=== PATIENT | female | born 1990 | race Caucasian/White ===

== ENCOUNTER 2016-03-10 13:20 | Inpatient (IN) | payer OTHER ==
[~2016-03-10] VITALS: Ht 152.4 cm; Wt 69.0 kg
[~2016-03-10 13:20] MED LIST: ALBU8.5H3 INH; AZIT250T94 PO; CALC500T12 PO; HYDR-3498 PO; IBUP-1542 PO; IBUP400T22 PO; IRON1TAB77 PO; PRENAT PO
[2016-03-10 13:24] VITALS: Ht 152.4 cm; Wt 69.0 kg
[2016-03-10 13:27] VITALS: BP 99/57; PULSE 77; RESP 19
[2016-03-10] MEDS ORDERED: LACTATED RINGER'S 250 ML IV ONE (14:00)
[2016-03-10 14:22] LABS: ADD UMIC NO; URINE BILIRUBIN (Dip) NEGATIVE (NEGATIVE); URINE BLOOD (Dip) NEGATIVE (NEGATIVE); URINE COLOR YELLOW (YELLOW); URINE GLUCOSE (Dip) NEGATIVE (NEGATIVE); URINE KETONES (Dip) NEGATIVE (NEGATIVE); URINE LEUKOCYTE ESTERASE (Dip) NEGATIVE (NEGATIVE); URINE NITRITE (Dip) NEGATIVE (NEGATIVE); URINE TOTAL PROTEIN (Dip) NEGATIVE (NEGATIVE); URINE UROBILINOGEN (Dip) 0.2 E.U./dL (0.1-1.0)
--- NOTE | 2016-03-10 14:28 | RADRPT ---
PROCEDURE: OB ultrasound CLINICAL INDICATION: . OB ultrasound with fluid volume assessment. TECHNIQUE: Mcmahon scale, color Doppler, and M-mode sonographic imaging of the gravid uterus with quintana sabdominal and transvaginal imaging. COMPARISON: OB ultrasound 02/04/2014 FINDINGS: The amniotic fluid index equals approximately 12.3 cm. heart rate: 156 Beats per minute. Presentation: Breech Placenta posterior, no evidence of previa or abruption. Cervix is closed measuring 3.5 cm. IMPRESSION: Amniotic fluid index equals 12.3 cm. Breech presentation RPTAT: AADD .Franky Bills MD, MD Date Time Electronically viewed and signed by .Franky Bills MD, on 03/10/2016 14:28 .B/
--- NOTE | 2016-03-10 16:05 | TRIAGE ---
OB Triage Datetime Report Generated by CPN: 03/10/2016 16:04 Datetime: 03/10/2016 15:30 Stage of : OB Triage Labor Evaluation Frequency: Q 2-3 Monitor Mode: External Duration (sec)2399: 60 Quality: Mild Pattern: Normal: <= 5 Contractions in 10 Minutes Resting Tone [place]: Relaxed Heart Rate FHR Baseline Rate: 145 Monitor Mode: External US FHR Baseline Changes: No Baseline Change Variability: Moderate 6-25 bpm Accelerations: 15X15 Decelerations: None Category: Category I Pain Assessment Pain Scale: 3 Pain Presence: Intermittent Pain Type: Cramping; Contraction Pain Location: Back Pain Goal: 3 Vaginal Exam Membrane Status: Intact Datetime: 03/10/2016 14:47 Labor Evaluation Frequency: Q 2-3 Monitor Mode: External Duration (sec)2399: 60 Quality: Mild Pattern: Normal: <= 5 Contractions in 10 Minutes Resting Tone [place]: Relaxed Heart Rate FHR Baseline Rate: 145 Monitor Mode: External US FHR Baseline Changes: No Baseline Change Variability: Moderate 6-25 bpm Accelerations: 15X15 Decelerations: None Category: Category I Comments: APPROPOR GEST AGE Vaginal Exam Membrane Status: Intact Datetime: 03/10/2016 14:31 Heart Rate FHR Baseline Rate: 140 FHR Baseline Changes: No Baseline Change Variability: Minimal - Undetectable to <=5 bpm Decelerations: None Category: Category I Comments: APPROPRIATE FOR GEST AGE Vaginal Exam Membrane Status: Intact Datetime: 03/10/2016 13:40 Maternal Assessment Level of Consciousness: Fully Conscious DTR's/Clonus: DTRs 1+ Headache: Denies Blurred Vision: No Nausea/Vomiting: Denies RUQ Epigastric Pain: Denies Facial Edema: None Labor Evaluation Frequency: 1-2 Monitor Mode: External Duration (sec)2399: 40-80 Quality: Mild Pattern: Normal: <= 5 Contractions in 10 Minutes Resting Tone [place]: Relaxed Heart Rate FHR Baseline Rate: 140 Monitor Mode: External US Variability: Moderate 6-25 bpm Accelerations: 10X10 Decelerations: None Category: Category I Pain Assessment Pain Scale: 6 Pain Presence: Intermittent Pain Type: Contraction Pain Location: Back Pain Goal: 3 Pain Relief Measures: Pain Medication Given Vaginal Exam Membrane Status: Intact Datetime: 03/10/2016 13:24 Assessment Type: Triage Maternal Assessment Level of Consciousness: Fully Conscious DTR's/Clonus: DTRs 2+; No Clonus Headache: Denies Blurred Vision: No Respiratory Effort: Unlabored; Regular Rhythm; Equal Expansion Breath Sounds, Left: Clear and Equal Breath Sounds, Right: Clear and Equal Nausea/Vomiting: Denies RUQ Epigastric Pain: Denies Lower Extremities Edema: None Degree: None Upper Extremities Edema: None Degree: None Facial Edema: None Fall Risk Assessment History of Falling: (0) No Secondary Diagnosis: (0) No Ambulatory Aid: (0) Bedrest/Nurse Assist IV Therapy: (0) No Gait: (0) Normal/Bedrest/Immobile Mental Status: (0) Oriented to Own Ability Fall Score: 0 Fall Risk Score Definition: No Risk: No action required Datetime: 03/10/2016 13:22 EGA: 24.1 Datetime: 03/10/2016 13:15 Time of Arrival: 03/10/2016 13:15 Arrived By: Wheelchair Arrived From: Home Chief Complaint: PT CAME IN FROM WORK C/O UC'S Q 5-10MIN SINCE 1200PM Movement: Present Contractions: Regular Time Contractions Began: 03/10/2016 12:00 Contractions: 5-10 Rupture of Membranes: Denies Vaginal Discharge: Denies Recent Sexual Intercouse: Denies Abdominal Trauma: Not Applicable Additional Patient Complaints: NONE Time Provider Notified: 03/10/2016 13:40 Provider Notified: TYLOR Initial Plan: MONITOR, IV HYDRATION, CERVICAL LENGHT
[2016-03-10] MEDS ORDERED: AMPICILLIN 2 GM/NS (PMX) 100 ML IV ONE (16:30)
[2016-03-10] MEDS ORDERED: MAGNESIUM SULFATE 4 GM/100 ML 100 ML IV ONE (16:30)
[2016-03-10 16:36] LABS: BASOPHILS % 0.3 % (0.0-2.0); EOSINOPHILS # 0.1 10^3/ul (0.0-0.5); EOSINOPHILS % 1.2 % (0.0-7.0); HEMOGLOBIN 10.8 g/dl (12.0-16.0); LYMPHOCYTES # 1.4 10^3/ul (0.8-2.9); LYMPHOCYTES % 16.4 % (15.0-51.0); MEAN CORPUSCULAR HEMOGLOBIN 32.5 pg (29.0-33.0); MEAN CORPUSCULAR HGB CONC 34.9 g/dl (32.0-37.0); MEAN CORPUSCULAR VOLUME 93.2 fl (82.0-101.0); MEAN PLATELET VOLUME 9.2 fl (7.4-10.4); MONOCYTE # 0.5 10^3/ul (0.3-0.9); MONOCYTES % 6.5 % (0.0-11.0); NEUTROPHIL # 6.4 10^3/ul (1.6-7.5); NEUTROPHILS % 75.6 % (39.0-77.0); PLATELET COUNT 264 10^3/UL (140-440); RED BLOOD COUNT 3.33 10^6/ul (4.20-5.40); RED CELL DISTRIBUTION WIDTH 12.2 % (11.5-14.5); UNCORRECTED WBC 8.4 10^3/ul (4.8-10.8); WHITE BLOOD COUNT 8.4 10^3/ul (4.8-10.8)
[2016-03-10 16:37] LABS: CONDITION 1
[2016-03-10] MEDS: LACTATED RINGER'S 1,000 ML IV SCH (16:46)
[2016-03-10] MEDS: BETAMET NA PHOS/AC(6 MG/ML) 5ML INJ IM SCH (16:46)
[2016-03-10] MEDS: MAGNESIUM SULFATE 20 GM/500 ML 500 ML IV SCH (17:25)
[2016-03-11] MEDS: LACTATED RINGER'S 1,000 ML IV SCH ×4 (00:25→19:03)
[2016-03-11] MEDS: MAGNESIUM SULFATE 20 GM/500 ML 500 ML IV SCH ×3 (03:23→22:25)
[2016-03-11] MEDS: MULTIVIT/MIN/FOLATE/IRON/PREN TAB PO SCH (08:51)
[2016-03-11] MEDS: FERROUS SULFATE (EC) 325 MG TAB PO SCH (08:51)
[2016-03-11] MEDS: DOCUSATE SODIUM 100 MG CAP PO SCH (08:51)
[2016-03-11] MEDS: BETAMET NA PHOS/AC(6 MG/ML) 5ML INJ IM SCH (16:52)
[2016-03-11] MEDS: ACETAMINOPHEN 325 MG TAB PO PRN (21:26)
[2016-03-12] MEDS: LACTATED RINGER'S 1,000 ML IV SCH ×3 (05:36→21:11)
[2016-03-12] MEDS: DOCUSATE SODIUM 100 MG CAP PO SCH (09:22)
[2016-03-12] MEDS: MULTIVIT/MIN/FOLATE/IRON/PREN TAB PO SCH (09:22)
[2016-03-12] MEDS: FERROUS SULFATE (EC) 325 MG TAB PO SCH (09:22)
--- NOTE | 2016-03-12 11:10 | CONS ---
DATE OF ADMISSION: 03/10/2016 DATE OF CONSULTATION: HISTORY OF PRESENT ILLNESS: This patient is a 26-year-old 5, para 4, with a due date of 06/29/2016, which makes her about 24 weeks and 3 days . She came into the hospital 2 days ago on 03/10/2016 due to contractions and was admitted in the hospital with a diagnosis of premature labor, and the magnesium sulfate was started, which continued until today, and she also was given 2 doses of betamethasone. Her contractions gradually subsided today. She has very few contractions. On the lab test that was done her FFN was positive, may be be due to contractions; however, heart tone is normal. PHYSICAL EXAMINATION: GENERAL: She has very rare contractions. EARS, NOSE, THROAT: Appear to be normal. NECK: Normal. No neck vein distention, no thyromegaly. LYMPHATIC: No lymph node enlargement anywhere in the body. ABDOMEN: Soft. Fundus measures about 25 cm. No contractions at this time. heart tone is normal. VITAL SIGNS: Her blood pressure is 95/50, pulse rate and respirations are normal. PELVIC: Not done. EXTREMITIES: She does not have any edema of the lower extremities. Her knee jerk reflex also is normal. We will keep her today and discharge her tomorrow if she is stable and no contraction. Her ultrasound showed that the cervical length was 3.5 cm. Dictated By: JULIO C RESTREPO/JEREMY Conf#: [id number] DID#: [id number] MTDD
[2016-03-12] MEDS: ACETAMINOPHEN 325 MG TAB PO PRN ×2 (14:03→23:56)
--- NOTE | 2016-03-12 15:33 | RADRPT ---
PROCEDURE: US Renal CLINICAL INDICATION: Right flank pain TECHNIQUE: Multiple sonographic images of the kidneys and bladder were obtained. Evaluation of th e kidneys and bladder was performed as well with tello scale and color and Doppler evaluation using a curved array transducer. The images were reviewed on a high-resolution PACS workstation. COMPARISON: No prior studies are available for comparison. FINDINGS: The right kidney measures 10 cm in length. The left kidney measures 11 cm in length. There is normal echogenicity within the parenchyma of the kidneys bilaterally. Mild right hydronephrosis. The bladder is distended. IMPRESSION: Mild right hydronephrosis. RPTAT: AA .Rod Vergara MD, MD Date Time Electronically viewed and signed by .Rod Vergara MD, on 03/12/2016 15:32 .T/
[2016-03-12 16:10] LABS: ADD UMIC NO; URINE BILIRUBIN (Dip) NEGATIVE (NEGATIVE); URINE BLOOD (Dip) NEGATIVE (NEGATIVE); URINE COLOR LT. YELLOW (YELLOW); URINE GLUCOSE (Dip) NEGATIVE (NEGATIVE); URINE KETONES (Dip) NEGATIVE (NEGATIVE); URINE LEUKOCYTE ESTERASE (Dip) NEGATIVE (NEGATIVE); URINE NITRITE (Dip) NEGATIVE (NEGATIVE); URINE TOTAL PROTEIN (Dip) NEGATIVE (NEGATIVE); URINE UROBILINOGEN (Dip) 0.2 E.U./dL (0.1-1.0)
[2016-03-12] MEDS ORDERED: BUTORPHANOL 2 MG INJ IV ONE (18:00)
[2016-03-13] MEDS: LACTATED RINGER'S 1,000 ML IV SCH (06:51)
[2016-03-13] MEDS: FERROUS SULFATE (EC) 325 MG TAB PO SCH (08:44)
[2016-03-13] MEDS: DOCUSATE SODIUM 100 MG CAP PO SCH (08:44)
[2016-03-13] MEDS: MULTIVIT/MIN/FOLATE/IRON/PREN TAB PO SCH (08:44)
[2016-03-13] MEDS: ACETAMINOPHEN 325 MG TAB PO PRN (08:51)
--- NOTE | 2016-03-13 12:38 | PN ---
Date/Time of Note Date/Time of Note DATE: 03/13/16 TIME: 12:35 OB Subjective Subjective Subjective Patient denies any contractions. Denies any LOF or vaginal bleeding or decreased movement Upon furthur questions. Patient reports that she had intercourse 24 hour prior to her cramps when she presented to triage. Her FFN was positive She denies any urinary symptoms. Has a history of PTD at 36 weeks in last and the rest of her pregnancies were full term OB Objective Objective Objective GA: A&O, NAD Abdomen: Soft, non tender, gravid, no suprapubic tenderness NST; Appropriate for GA No contractions seen on the monitor UA : negative PROCEDURE: OB ultrasound CLINICAL INDICATION: . OB ultrasound with fluid volume assessment. TECHNIQUE: Mcmahon scale, color Doppler, and M-mode sonographic imaging of the gravid uterus with transabdominal and transvaginal imaging. COMPARISON: OB ultrasound 02/04/2014 FINDINGS: The amniotic fluid index equals approximately 12.3 cm. heart rate: 156 Beats per minute. Presentation: Breech Placenta posterior, no evidence of previa or abruption. Cervix is closed measuring 3.5 cm. IMPRESSION: Amniotic fluid index equals 12.3 cm. Breech presentation PROCEDURE: US Renal CLINICAL INDICATION: Right flank pain TECHNIQUE: Multiple sonographic images of the kidneys and bladder were obtained. Evaluation of the kidneys and bladder was performed as well with mcmahon scale and color and Doppler evaluation using a curved array transducer. The images were reviewed on a high-resolution PACS workstation. COMPARISON: No prior studies are available for comparison. FINDINGS: The right kidney measures 10 cm in length. The left kidney measures 11 cm in length. There is normal echogenicity within the parenchyma of the kidneys bilaterally. Mild right hydronephrosis. The bladder is distended. IMPRESSION: Mild right hydronephrosis. RPTAT: AA OB Assessment/Plan Other Assessment: HD #2 Admitted for contractions, noted to have + FFN, s./p magnesium and a full course of steriods. more than 24 hours after last dose of steriods. off of magnesium . stable for discharge Patient reports she had intercourse within 24 hours prior to test CL: long. 3.85 cm records reviewed and were unremarkable she had good care and is compliant There is currently no evidence of labor, no evidence of PPROM Asymptomatic No contractions on the monitor Can be discharged home today Strict PTL precaution and kick counts discussed' Other plan: DC home follow up in 2-3 days with her own clinic Strict labor precaution and kick counts discussed MARIE SNIDER MD Mar 13, 2016 12:38
== END 2016-03-13 11:45 | disposition home or self-care (01) | DRG 782 ==
LOC: OBT 13:20 → L-D 13:21 → OBT 15:30 → OBG 15:30
PROVIDERS: ADMIT Obstetrics & Gynecology Obstetrics; ATTEND Obstetrics & Gynecology Obstetrics
DX: O62.8 Other abnormalities of forces of labor (principal); O09.212 Supervision of pregnancy with history of pre-term labor, second trimester; Z3A.24 24 weeks gestation of pregnancy
CPT/HCPCS: 36415; 76775; 76816; 76817; 81003; 82731; 83735; 85025; 86900; 86901; 87086; 96360; 96361; G0463; J0290; J0702; J3475; J7120

== ENCOUNTER 2016-03-18 11:19 | Outpatient (CLI) | payer OTHER ==
[~2016-03-18] VITALS: Ht 152.4 cm; Wt 58.6 kg
[~2016-03-18 11:19] MED LIST changes: -AZIT250T94 PO; -HYDR-3498 PO; -IBUP-1542 PO; -IBUP400T22 PO
[2016-03-18 11:33] VITALS: Ht 152.4 cm; Wt 58.6 kg
[2016-03-18 11:34] VITALS: BP 116/63; PULSE 95; RESP 18
[2016-03-18 12:56] LABS: ADD UMIC YES; URINE BILIRUBIN (Dip) NEGATIVE (NEGATIVE); URINE BLOOD (Dip) NEGATIVE (NEGATIVE); URINE COLOR LT. YELLOW (YELLOW); URINE GLUCOSE (Dip) NEGATIVE (NEGATIVE); URINE KETONES (Dip) NEGATIVE (NEGATIVE); URINE LEUKOCYTE ESTERASE (Dip) TRACE (NEGATIVE); URINE NITRITE (Dip) NEGATIVE (NEGATIVE); URINE TOTAL PROTEIN (Dip) NEGATIVE (NEGATIVE); URINE UROBILINOGEN (Dip) 0.2 E.U./dL (0.1-1.0)
[2016-03-18 13:08] LABS: SQUAMOUS EPITHELIAL CELL,UR MODERATE; URINE RBCS NONE SEEN /HPF ([, 0])
--- NOTE | 2016-03-18 13:47 | RADRPT ---
PROCEDURE: Limited obstetric ultrasound CLINICAL INDICATION: distress TECHNIQUE: Multiple transverse and longitudinal grayscale images of the pelvis were obtained quintana sabdominally and endovaginally.. COMPARISON: Obstetrical ultrasound from 03/10/2016 FINDINGS: There is a single live intrauterine gestation in a breech position with a heart rate of 136 bp m. The placenta is posterior without evidence of placental abruption or placenta previa. The cervix is closed and measures 3.2 cm in length. RPTAT: AA IMPRESSION: The cervix is closed and measures 3.2 cm in length. Breech presentation. Physician João Date Time Electronically viewed and signed by Physician João on 03/18/2016 13:46 RA/
[2016-03-18] MEDS ORDERED: NIFEdipine 10 MG CAP PO ONE (14:00)
== END 2016-03-18 14:55 | disposition home or self-care (01) ==
LOC: OBT 11:19 → L-D 11:21 → OBT 14:55
DX: O60.02 Preterm labor without delivery, second trimester (principal); O77.9 Labor and delivery complicated by fetal stress, unspecified; O32.1XX0 Maternal care for breech presentation, not applicable or unspecified; Z3A.00 Weeks of gestation of pregnancy not specified
CPT/HCPCS: 76817; 81001; Z7500; Z7610; 81003; G0463

== ENCOUNTER 2016-04-04 10:46 | Outpatient (CLI) | payer OTHER ==
[~2016-04-04] VITALS: Ht 152.4 cm; Wt 59.4 kg
[~2016-04-04 10:46] MED LIST changes: -ALBU8.5H3 INH
[2016-04-04 10:56] VITALS: BP 111/75; PULSE 92; RESP 18; Ht 152.4 cm; Wt 59.4 kg
[2016-04-04] MEDS ORDERED: NIFE10CA19 PO (11:53)
[2016-04-04] MEDS ORDERED: AMO500 PO (11:54)
[2016-04-04] MEDS ORDERED: LACTATED RINGER'S 1,000 ML IV ONE (12:00)
--- NOTE | 2016-04-04 13:04 | RADRPT ---
PROCEDURE: Limited OB ultrasound CLINICAL INDICATION: labor TECHNIQUE: Sonographic evaluation to assess the JORDON was performed. Transabdominal imaging of the gravid uterus was performed. COMPARISON: OB ultrasound dated 03/18/2016 FINDINGS: There is a single live intrauterine with a heart rate of 137 bpm. position is transverse with head to the maternal left. The placenta is posterior fundal. The JORDON measures 19. 0 cm. The cervix is closed with a length of 3.9 cm. IMPRESSION: 1. The JORDON measures 19.0 cm. 2. The cervix is closed with a length of 3.9 cm. 3. Transverse presentation. RPTAT: HH .Elayne Mendoza MD, MD Date Time Electronically viewed and signed by .Elayne Mendoza MD, on 04/04/2016 13:03 .G/
[2016-04-04 13:22] LABS: BASOPHILS % 0.3 % (0.0-2.0); EOSINOPHILS # 0.3 10^3/ul (0.0-0.5); EOSINOPHILS % 3.9 % (0.0-7.0); HEMATOCRIT 33.3 % (37.0-47.0); HEMOGLOBIN 11.3 g/dl (12.0-16.0); LYMPHOCYTES # 1.4 10^3/ul (0.8-2.9); LYMPHOCYTES % 16.6 % (15.0-51.0); MEAN CORPUSCULAR VOLUME 93.9 fl (82.0-101.0); MEAN PLATELET VOLUME 8.9 fl (7.4-10.4); MONOCYTE # 0.6 10^3/ul (0.3-0.9); MONOCYTES % 7.1 % (0.0-11.0); NEUTROPHIL # 6.2 10^3/ul (1.6-7.5); NEUTROPHILS % 72.1 % (39.0-77.0); PLATELET COUNT 242 10^3/UL (140-440); RED BLOOD COUNT 3.55 10^6/ul (4.20-5.40); RED CELL DISTRIBUTION WIDTH 12.4 % (11.5-14.5); UNCORRECTED WBC 8.6 10^3/ul (4.8-10.8); WHITE BLOOD COUNT 8.6 10^3/ul (4.8-10.8)
[2016-04-04 13:24] LABS: CONDITION 1
[2016-04-04 13:31] LABS: ADD UMIC NO; URINE BILIRUBIN (Dip) NEGATIVE (NEGATIVE); URINE BLOOD (Dip) NEGATIVE (NEGATIVE); URINE COLOR LT. YELLOW (YELLOW); URINE GLUCOSE (Dip) NEGATIVE (NEGATIVE); URINE KETONES (Dip) 3+ (NEGATIVE); URINE LEUKOCYTE ESTERASE (Dip) NEGATIVE (NEGATIVE); URINE NITRITE (Dip) NEGATIVE (NEGATIVE); URINE TOTAL PROTEIN (Dip) NEGATIVE (NEGATIVE); URINE UROBILINOGEN (Dip) 0.2 E.U./dL (0.1-1.0)
--- NOTE | 2016-04-04 14:48 | PN ---
Date/Time of Note Date/Time of Note DATE: 04/04/16 TIME: 14:42 OB Subjective Subjective Subjective April 04, 2016. This is a triage consultation report. The patient is a 26 years old 6 para 4, labor, 1 1, living 4 . EDC is June 29, 2016 which make her 27 weeks and 5 days. now she was seen a few days earlier due to premature contractions and went home today. She came in complaining of uterine contractions since 9:00 in the morning , She also claims that she has passed a mucous plug . On examination she is a normal lady. Body weight 59.4 kg , pressure 111/75 , pulse rate 92. Respiration 18. Temperature 92.8. Her ear nose throat appear to be normal Neck is normal no neck vein distention no thyromegaly. No lymph node enlargement anywhere in the body. Chest is clear to auscultation and percussion, no rales. Heart normal sinus rhythm . Breasts are soft free of masses. Her abdomen is soft she had occasional contractions. Pelvic exam was not performed . Extremities normal no, edema no varicosities . On lab studies her urinalysis CBC was reported glenny,l except for 2+ ketones. On ultrasound per JORDON is 19. Cervical length reported 3.9 cm . Baby is in transverse lie She was given hydration and kept in the hospital for couple hours. At this time about 3 hours p.m. after hydration she does not have much of a contraction heart tone is normal Laboratory Tests Test 04/04/16 10:42 04/04/16 12:59 Urine Bilirubin NEGATIVE Urine Clarity CLEAR Urine Color LT. YELLOW Urine Glucose NEGATIVE% Urine Hemoglobin NEGATIVE Urine Ketones 3+ Urine Leukocyte Esterase NEGATIVE Urine Nitrite NEGATIVE Urine Specific [place] 1.015 Urine Total Protein NEGATIVE Urine Urobilinogen 0.2 E.U./dL Urine pH 8.0 Basophils # 0.010^3/ul Basophils % 0.3% Eosinophils # 0.310^3/ul Eosinophils % 3.9% Hematocrit 33.3% Hemoglobin 11.3g/dl Lymphocytes # 1.410^3/ul Lymphocytes % 16.6% Mean Corpuscular Hemoglobin 32.0pg Mean Corpuscular Hemoglobin Concent 34.0g/dl Mean Corpuscular Volume 93.9fl Mean Platelet Volume 8.9fl Monocytes # 0.610^3/ul Monocytes % 7.1% Neutrophils # 6.210^3/ul Neutrophils % 72.1% Nucleated Red Blood Cells # 0.010^3/ul Nucleated Red Blood Cells % 0.0/100WBC Platelet Count 08485^3/UL Red Blood Count 3.5510^6/ul Red Cell Distribution Width 12.4% White Blood Count 8.610^3/ul Current Medications Medications (Trade) Dose Ordered Sig/Gus Route PRN Reason Start Time Stop Time Status Last Admin Dose Admin Lactated Ringer's (Lr) 1,000 ml @ 1,000 mls/hr Q1H ONCE IV 04/04/16 12:00 04/04/16 12:59 DC 04/04/16 12:59 Disposition. 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 JULIO C SUAREZ MD Apr 04, 2016 14:48
--- NOTE | 2016-04-04 16:39 | TRIAGE ---
OB Triage Datetime Report Generated by CPN: 04/04/2016 16:37 Datetime: 04/04/2016 14:35 Stage of : OB Triage Datetime: 04/04/2016 14:18 Stage of : OB Triage Datetime: 04/04/2016 14:14 Vaginal Exam Dilatation (cms): 0.0 Effacement (%): 0 Station: -3 Exam By: M ARENAS Vaginal Bleeding: None Cervix, Consistency: Firm Cervix, Position: Posterior Datetime: 04/04/2016 14:09 Stage of : OB Triage Datetime: 04/04/2016 14:04 Stage of : OB Triage Datetime: 04/04/2016 14:01 Stage of : OB Triage Labor Evaluation Frequency: x3 Monitor Mode: External Duration (sec)2399: 60-110 Resting Tone [place]: Relaxed Monitor Mode: External US FHR Baseline Changes: No Baseline Change Variability: Moderate 6-25 bpm Accelerations: 15X15 Decelerations: Variable Category: Category I Comments: Appropriate fo GA Datetime: 04/04/2016 13:04 Labor Evaluation Frequency: IRREG Monitor Mode: External Duration (sec)2399: 50-120 Pattern: Normal: <= 5 Contractions in 10 Minutes Resting Tone [place]: Relaxed Heart Rate FHR Baseline Rate: 135 Monitor Mode: External US Variability: Moderate 6-25 bpm Accelerations: 15X15 Decelerations: None Category: Category I Datetime: 04/04/2016 12:00 Labor Evaluation Frequency: IRREG Monitor Mode: External Duration (sec)2399: 60-120 Pattern: Normal: <= 5 Contractions in 10 Minutes Heart Rate FHR Baseline Rate: 130 Monitor Mode: External US Variability: Moderate 6-25 bpm Accelerations: 15X15 Decelerations: None Category: Category I Datetime: 04/04/2016 11:17 Labor Evaluation Frequency: IRREG Monitor Mode: External Duration (sec)2399: 40-90 Pattern: Normal: <= 5 Contractions in 10 Minutes Resting Tone [place]: Relaxed Heart Rate FHR Baseline Rate: 140 Monitor Mode: External US Variability: Moderate 6-25 bpm Accelerations: 10X10 Decelerations: Variable Category: Category II Datetime: 04/04/2016 10:50 Assessment Type: Admission Assessment Maternal Assessment Level of Consciousness: Fully Conscious DTR's/Clonus: DTRs 2+; No Clonus Headache: Denies Blurred Vision: No Respiratory Effort: Unlabored; Regular Rhythm; Equal Expansion Breath Sounds, Left: Clear and Equal Breath Sounds, Right: Clear and Equal Nausea/Vomiting: Denies RUQ Epigastric Pain: Denies Lower Extremities Edema: None Degree: None Upper Extremities Edema: None Degree: None Facial Edema: None Fall Risk Assessment History of Falling: (0) No Secondary Diagnosis: (0) No Ambulatory Aid: (0) Bedrest/Nurse Assist IV Therapy: (0) No Gait: (0) Normal/Bedrest/Immobile Mental Status: (0) Oriented to Own Ability Fall Score: 0 Fall Risk Score Definition: No Risk: No action required Datetime: 04/04/2016 10:47 Time of Arrival: 04/04/2016 10:45 EGA: 27.5 Arrived By: Ambulatory Arrived From: Home Chief Complaint: CONTRACTIONS SINCE 2100 YESTERDAY LOSS MUCUS PLUG AT 0900 Movement: Present Contractions: Irregular Time Contractions Began: 04/03/2016 21:00 Rupture of Membranes: Denies Vaginal Bleeding: Normal Show Vaginal Discharge: Denies Recent Sexual Intercouse: Denies Abdominal Trauma: Not Applicable Patient Complaints: Contractions Additional Patient Complaints: TOCO/ US Time Provider Notified: 04/04/2016 11:22 Provider Notified: DR. RILEY Initial Plan: IV HYDRATION- LR 1000CC, CBC, U/A, PLACENTA POSITION, JORDON, CERVICAL LENGHT. Datetime: 04/04/2016 10:46 Pain Assessment Pain Scale: 6 Pain Presence: Intermittent Pain Type: Contraction Pain Location: Abdomen Pain Relief Measures: Comfort Measures Datetime: 03/18/2016 14:30 Labor Evaluation Frequency: OCCAS Monitor Mode: External Duration (sec)2399: 40-60 Quality: Mild Pattern: Normal: <= 5 Contractions in 10 Minutes Resting Tone [place]: Relaxed Heart Rate FHR Baseline Rate: 140 Monitor Mode: External US Variability: Minimal - Undetectable to <=5 bpm Accelerations: 10X10 Decelerations: None Category: Category II Datetime: 03/18/2016 13:30 Labor Evaluation Frequency: OCCAS Monitor Mode: External Duration (sec)2399: 40-50 Quality: Mild Pattern: Normal: <= 5 Contractions in 10 Minutes Resting Tone [place]: Relaxed Heart Rate FHR Baseline Rate: 140 Monitor Mode: External US Variability: Minimal - Undetectable to <=5 bpm Accelerations: 10X10 Decelerations: None Category: Category II Datetime: 03/18/2016 12:20 Labor Evaluation Frequency: OCCAS Monitor Mode: External Duration (sec)2399: 40-60 Quality: Mild Pattern: Normal: <= 5 Contractions in 10 Minutes Resting Tone [place]: Relaxed Heart Rate FHR Baseline Rate: 140 Monitor Mode: External US Variability: Minimal - Undetectable to <=5 bpm Accelerations: 10X10 Decelerations: None Category: Category II Datetime: 03/18/2016 11:38 Stage of : OB Triage Assessment Type: Admission Assessment Maternal Assessment Level of Consciousness: Fully Conscious DTR's/Clonus: DTRs 2+; No Clonus Headache: Denies Blurred Vision: No Respiratory Effort: Unlabored; Regular Rhythm; Equal Expansion Breath Sounds, Left: Clear and Equal Breath Sounds, Right: Clear and Equal Nausea/Vomiting: Denies RUQ Epigastric Pain: Denies Lower Extremities Edema: None Degree: None Upper Extremities Edema: None Degree: None Facial Edema: None Fall Risk Assessment History of Falling: (0) No Secondary Diagnosis: (0) No Ambulatory Aid: (0) Bedrest/Nurse Assist IV Therapy: (0) No Gait: (0) Normal/Bedrest/Immobile Mental Status: (0) Oriented to Own Ability Fall Score: 0 Fall Risk Score Definition: No Risk: No action required Datetime: 03/18/2016 11:36 Time of Arrival: 03/18/2016 11:17 EGA: 25.2 Arrived By: Wheelchair Arrived From: Emergency Dept Chief Complaint: UC'S, BACK PAIN AND PRESSURE Movement: Present Contractions: Irregular Time Contractions Began: 03/18/2016 08:00 Rupture of Membranes: Denies Vaginal Bleeding: None Vaginal Discharge: Present Recent Sexual Intercouse: Denies Abdominal Trauma: Not Applicable Patient Complaints: Contractions; Other Time Provider Notified: 03/18/2016 12:30 Provider Notified: DR UNDERWOOD Initial Plan: NST Datetime: 03/13/2016 10:44 Labor Evaluation Frequency: 0 Monitor Mode: External Duration (sec)2399: 0 Pattern: Normal: <= 5 Contractions in 10 Minutes Resting Tone [place]: Relaxed Contraction Comments: NO UC'S NOTED AT THIS TIME Monitor Mode: External US Variability: Moderate 6-25 bpm Accelerations: 10X10 Decelerations: None Category: Category I Comments: NST REACTIVE FOR GESTATIONAL AGE Datetime: 03/13/2016 10:33 Stage of : Antepartum Datetime: 03/13/2016 08:59 Labor Evaluation Frequency: 0 Monitor Mode: External Duration (sec)2399: 0 Contraction Comments: NO UC' NOTED AT THIS TIME / PT DENIES UC'S Datetime: 03/13/2016 08:41 Maternal Assessment Level of Consciousness: Fully Conscious DTR's/Clonus: DTRs 2+; No Clonus Headache: Frontal Blurred Vision: No Respiratory Effort: Unlabored Breath Sounds, Left: Clear and Equal Breath Sounds, Right: Clear and Equal Nausea/Vomiting: Denies RUQ Epigastric Pain: Denies Facial Edema: None Datetime: 03/13/2016 08:40 Assessment Type: Ongoing Assessment Maternal Assessment Level of Consciousness: Fully Conscious DTR's/Clonus: DTRs 2+; No Clonus Headache: Frontal Blurred Vision: No Respiratory Effort: Unlabored; Regular Rhythm; Equal Expansion Breath Sounds, Left: Clear and Equal Breath Sounds, Right: Clear and Equal Nausea/Vomiting: Denies RUQ Epigastric Pain: Denies Lower Extremities Edema: Bilateral Lower Extremities Degree: 1+ Upper Extremities Edema: None Degree: None Facial Edema: None Fall Risk Assessment History of Falling: (0) No Secondary Diagnosis: (0) No Ambulatory Aid: (0) Bedrest/Nurse Assist IV Therapy: (20) Yes Gait: (0) Normal/Bedrest/Immobile Mental Status: (0) Oriented to Own Ability Fall Score: 20 Fall Risk Score Definition: No Risk: No action required Comment: Datetime: 03/13/2016 08:00 Labor Evaluation Frequency: 0 Monitor Mode: External Duration (sec)2399: 0 Datetime: 03/13/2016 07:30 Assessment Type: Ongoing Assessment Datetime: 03/13/2016 07:25 Stage of : Antepartum Datetime: 03/13/2016 07:00 Stage of : Antepartum Labor Evaluation Frequency: X0 Monitor Mode: External Duration (sec)2399: X0 Resting Tone [place]: Relaxed Monitor Mode: OFF Datetime: 03/13/2016 06:00 Stage of : Antepartum Labor Evaluation Frequency: X0 Monitor Mode: External Duration (sec)2399: X0 Resting Tone [place]: Relaxed Monitor Mode: OFF Datetime: 03/13/2016 05:23 Stage of : Antepartum Temperature Route: Oral Pain Assessment Pain Scale: 0 Pain Presence: None/Denies Pain Type: N/A Pain Goal: 0 Datetime: 03/13/2016 05:00 Stage of : Antepartum Labor Evaluation Frequency: X0 Monitor Mode: External Duration (sec)2399: X0 Resting Tone [place]: Relaxed Monitor Mode: OFF Datetime: 03/13/2016 04:00 Stage of : Antepartum Labor Evaluation Frequency: X0 Monitor Mode: External Duration (sec)2399: X0 Resting Tone [place]: Relaxed Monitor Mode: OFF Datetime: 03/13/2016 03:00 Stage of : Antepartum Labor Evaluation Frequency: X0 Monitor Mode: External Duration (sec)2399: X0 Resting Tone [place]: Relaxed Contraction Comments: ABDOMEN SOFT ON PALPATION. PT DENIES FEELING UC'S OR CRAMPING. Monitor Mode: OFF Datetime: 03/13/2016 02:00 Stage of : Antepartum Labor Evaluation Frequency: X0 Monitor Mode: External Duration (sec)2399: X0 Resting Tone [place]: Relaxed Contraction Comments: ABDOMEN SOFT ON PALPATION. PT DENIES FEELING UC'S OR CRAMPING. Monitor Mode: OFF Datetime: 03/13/2016 01:30 Stage of : Antepartum Datetime: 03/13/2016 01:00 Stage of : Antepartum Labor Evaluation Frequency: X0 Monitor Mode: External Duration (sec)2399: X0 Resting Tone [place]: Relaxed Contraction Comments: ABDOMEN SOFT ON PALPATION. PT DENIES FEELING UC'S OR CRAMPING. Monitor Mode: OFF Datetime: 03/13/2016 00:00 Stage of : Antepartum Maternal Assessment Level of Consciousness: Fully Conscious DTR's/Clonus: DTRs 2+; No Clonus Headache: Denies Breath Sounds, Left: Clear and Equal Breath Sounds, Right: Clear and Equal Nausea/Vomiting: Denies RUQ Epigastric Pain: Denies Temperature Route: Oral Labor Evaluation Frequency: X1/HR Monitor Mode: External Duration (sec)2399: 40 Quality: Mild Pattern: Normal: <= 5 Contractions in 10 Minutes Resting Tone [place]: Relaxed Contraction Comments: ABDOMEN SOFT ON PALPATION. PT DENIES FEELING UC'S OR CRAMPING. Monitor Mode: OFF Datetime: 03/12/2016 23:56 Pain Assessment Pain Scale: 7 Pain Presence: Constant Pain Type: Ache Pain Location: Back Pain Goal: 0 Pain Relief Measures: Pain Medication Given; Comfort Measures Datetime: 03/12/2016 23:00 Stage of : Antepartum Labor Evaluation Frequency: X0 Monitor Mode: External Duration (sec)2399: X0 Resting Tone [place]: Relaxed Contraction Comments: ABDOMEN SOFT ON PALPATION. PT DENIES FEELING UC'S OR CRAMPING. Monitor Mode: OFF Datetime: 03/12/2016 22:10 Assessment Type: Ongoing Assessment Datetime: 03/12/2016 22:00 Stage of : Antepartum Labor Evaluation Frequency: X1/HR Monitor Mode: External Duration (sec)2399: 90 Quality: Mild Pattern: Normal: <= 5 Contractions in 10 Minutes Resting Tone [place]: Relaxed Contraction Comments: ABDOMEN SOFT ON PALPATION. PT DENIES FEELING UC'S OR CRAMPING. Monitor Mode: OFF Datetime: 03/12/2016 21:07 Stage of : Antepartum Labor Evaluation Frequency: X0 Monitor Mode: External Duration (sec)2399: X0 Resting Tone [place]: Relaxed Contraction Comments: ABDOMEN SOFT ON PALPATION. PT DENIES FEELING UC'S OR CRAMPING Heart Rate FHR Baseline Rate: 135 Monitor Mode: External US Variability: Moderate 6-25 bpm Accelerations: 15X15 Decelerations: None Category: Category I Datetime: 03/12/2016 20:45 Stage of : Antepartum Assessment Type: Ongoing Assessment Maternal Assessment Level of Consciousness: Fully Conscious DTR's/Clonus: DTRs 2+; No Clonus Headache: Denies Blurred Vision: No Respiratory Effort: Unlabored; Regular Rhythm; Equal Expansion Breath Sounds, Left: Clear and Equal Breath Sounds, Right: Clear and Equal Nausea/Vomiting: Denies RUQ Epigastric Pain: Denies Lower Extremities Edema: None Degree: None Upper Extremities Edema: None Degree: None Facial Edema: None Temperature Route: Oral Fall Risk Assessment History of Falling: (0) No Secondary Diagnosis: (0) No Ambulatory Aid: (0) Bedrest/Nurse Assist IV Therapy: (20) Yes Gait: (0) Normal/Bedrest/Immobile Mental Status: (0) Oriented to Own Ability Fall Score: 20 Fall Risk Score Definition: No Risk: No action required Pain Assessment Pain Scale: 0 Pain Presence: None/Denies Pain Type: N/A Pain Goal: 0 Datetime: 03/12/2016 20:01 Comments: Q SHIFT NST STARTED Datetime: 03/12/2016 20:00 Stage of : Antepartum Labor Evaluation Frequency: X0 Monitor Mode: External Duration (sec)2399: X0 Resting Tone [place]: Relaxed Contraction Comments: ABDOMEN SOFT ON PALPATION. PT DENIES FEELING UC'S OR CRAMPING. Datetime: 03/12/2016 19:13 Stage of : Antepartum Datetime: 03/12/2016 19:00 Stage of : Antepartum Labor Evaluation Frequency: NONE Monitor Mode: External Resting Tone [place]: Relaxed Pain Assessment Pain Scale: 0 Pain Presence: None/Denies Pain Goal: 3 Datetime: 03/12/2016 18:00 Stage of : Antepartum Labor Evaluation Frequency: NONE Monitor Mode: External Resting Tone [place]: Relaxed Pain Assessment Pain Scale: 7 Pain Presence: Constant Pain Location: Abdomen; Back Pain Goal: 3 Pain Relief Measures: Pain Medication Given Pain Assessment Comments: PT MEDICATED WITH STADOL 2MG IVP. Datetime: 03/12/2016 17:54 Stage of : Antepartum Datetime: 03/12/2016 17:50 Stage of : Antepartum Datetime: 03/12/2016 17:13 Stage of : Antepartum Datetime: 03/12/2016 16:59 Stage of : Antepartum Labor Evaluation Frequency: NONE Monitor Mode: External Resting Tone [place]: Relaxed Heart Rate FHR Baseline Rate: 140 Monitor Mode: External US FHR Baseline Changes: No Baseline Change Variability: Moderate 6-25 bpm Accelerations: 10X10 Decelerations: Variable Category: Category II Pain Assessment Pain Scale: 3 Pain Presence: Constant Pain Location: Back Pain Goal: 3 Pain Relief Measures: Comfort Measures Datetime: 03/12/2016 16:00 Stage of : Antepartum Labor Evaluation Frequency: NONE Monitor Mode: External Resting Tone [place]: Relaxed Pain Assessment Pain Scale: 3 Pain Presence: Constant Pain Type: Pressure Pain Location: Right Flank Pain Goal: 3 Pain Relief Measures: Comfort Measures Pain Assessment Comments: TYLENOL HAD SOME EFFECT Datetime: 03/12/2016 14:50 Stage of : Antepartum Datetime: 03/12/2016 14:00 Stage of : Antepartum Labor Evaluation Frequency: NONE Monitor Mode: External Resting Tone [place]: Relaxed Heart Rate FHR Baseline Rate: 140 Monitor Mode: External US FHR Baseline Changes: No Baseline Change Variability: Moderate 6-25 bpm Accelerations: 10X10 Decelerations: Variable Category: Category II Pain Assessment Pain Scale: 5 Pain Presence: Constant Pain Type: Pressure Pain Location: Right Flank Pain Goal: 3 Pain Relief Measures: Pain Medication Given Pain Assessment Comments: MEDICATED WITH TYLENOL 650 MG PO Datetime: 03/12/2016 13:00 Stage of : Antepartum Labor Evaluation Frequency: NONE Monitor Mode: External Resting Tone [place]: Relaxed Heart Rate FHR Baseline Rate: 140 Monitor Mode: External US FHR Baseline Changes: No Baseline Change Variability: Moderate 6-25 bpm Accelerations: 10X10 Decelerations: Variable Category: Category II Pain Assessment Pain Scale: 0 Pain Presence: None/Denies Pain Goal: 3 Datetime: 03/12/2016 12:00 Stage of : Antepartum Labor Evaluation Frequency: NONE Monitor Mode: External Resting Tone [place]: Relaxed Heart Rate FHR Baseline Rate: 140 Monitor Mode: External US FHR Baseline Changes: No Baseline Change Variability: Moderate 6-25 bpm Accelerations: 10X10 Decelerations: Variable Category: Category II Pain Assessment Pain Scale: 0 Pain Presence: None/Denies Pain Goal: 3 Datetime: 03/12/2016 11:00 Stage of : Antepartum Labor Evaluation Frequency: NONE Monitor Mode: External Resting Tone [place]: Relaxed Heart Rate FHR Baseline Rate: 140 Monitor Mode: External US FHR Baseline Changes: No Baseline Change Variability: Moderate 6-25 bpm Accelerations: 10X10 Decelerations: Variable Category: Category II Pain Assessment Pain Scale: 0 Pain Presence: None/Denies Pain Goal: 3 Datetime: 03/12/2016 10:00 Stage of : Antepartum Labor Evaluation Frequency: NONE Monitor Mode: External Resting Tone [place]: Relaxed Heart Rate FHR Baseline Rate: 140 Monitor Mode: External US FHR Baseline Changes: No Baseline Change Variability: Moderate 6-25 bpm Accelerations: 10X10 Decelerations: Variable Category: Category II Pain Assessment Pain Scale: 0 Pain Presence: None/Denies Pain Goal: 3 Datetime: 03/12/2016 09:00 Stage of : Antepartum Labor Evaluation Frequency: NONE Monitor Mode: External Resting Tone [place]: Relaxed Heart Rate FHR Baseline Rate: 140 Monitor Mode: External US FHR Baseline Changes: No Baseline Change Variability: Moderate 6-25 bpm Accelerations: 10X10 Decelerations: Variable Category: Category II Pain Assessment Pain Scale: 0 Pain Presence: None/Denies Pain Goal: 3 Datetime: 03/12/2016 08:22 Assessment Type: Ongoing Assessment Maternal Assessment Level of Consciousness: Fully Conscious DTR's/Clonus: DTRs 2+; No Clonus Headache: Denies Blurred Vision: No Respiratory Effort: Unlabored; Regular Rhythm; Equal Expansion Breath Sounds, Left: Clear and Equal Breath Sounds, Right: Clear and Equal Nausea/Vomiting: Denies RUQ Epigastric Pain: Denies Lower Extremities Edema: None Degree: None Upper Extremities Edema: None Degree: None Facial Edema: None Fall Risk Assessment History of Falling: (0) No Secondary Diagnosis: (0) No Ambulatory Aid: (0) Bedrest/Nurse Assist IV Therapy: (0) No Gait: (0) Normal/Bedrest/Immobile Mental Status: (0) Oriented to Own Ability Fall Score: 0 Fall Risk Score Definition: No Risk: No action required Datetime: 03/12/2016 08:00 Stage of : Antepartum Labor Evaluation Frequency: NONE Monitor Mode: External Resting Tone [place]: Relaxed Heart Rate FHR Baseline Rate: 135 Monitor Mode: External US FHR Baseline Changes: No Baseline Change Variability: Moderate 6-25 bpm Accelerations: 10X10 Decelerations: Variable Category: Category II Pain Assessment Pain Scale: 0 Pain Presence: None/Denies Pain Goal: 3 Datetime: 03/12/2016 06:30 Stage of : Antepartum Datetime: 03/12/2016 05:31 Stage of : Antepartum Maternal Assessment Level of Consciousness: Fully Conscious DTR's/Clonus: DTRs 2+; No Clonus Headache: Denies Breath Sounds, Left: Clear and Equal Breath Sounds, Right: Clear and Equal Nausea/Vomiting: Denies RUQ Epigastric Pain: Denies Temperature Route: Axillary Monitor Mode: External Duration (sec)2399: 0 Intensity IUP (mmHg): 0 Resting Tone [place]: Relaxed Resting Tone IUP (mmHg): 0 Heart Rate FHR Baseline Rate: 135 Monitor Mode: External US Variability: Moderate 6-25 bpm Pain Assessment Pain Scale: 0 Pain Goal: 0 Datetime: 03/12/2016 04:31 Stage of : Antepartum Maternal Assessment Level of Consciousness: Fully Conscious DTR's/Clonus: DTRs 2+; No Clonus Headache: Denies Breath Sounds, Left: Clear and Equal Breath Sounds, Right: Clear and Equal Nausea/Vomiting: Denies RUQ Epigastric Pain: Denies Temperature Route: Axillary Datetime: 03/12/2016 03:31 Stage of : Antepartum Maternal Assessment Level of Consciousness: Fully Conscious DTR's/Clonus: DTRs 2+; No Clonus Headache: Denies Breath Sounds, Left: Clear and Equal Breath Sounds, Right: Clear and Equal Nausea/Vomiting: Denies RUQ Epigastric Pain: Denies Temperature Route: Axillary Pain Assessment Pain Scale: 0 Pain Presence: None/Denies Pain Type: N/A Pain Goal: 0 Datetime: 03/12/2016 02:26 Breath Sounds, Left: Clear and Equal Breath Sounds, Right: Clear and Equal Labor Evaluation Frequency: 0 Monitor Mode: External Duration (sec)2399: 0 Resting Tone [place]: Relaxed Heart Rate FHR Baseline Rate: 135 Monitor Mode: External US FHR Baseline Changes: No Baseline Change Variability: Moderate 6-25 bpm Accelerations: 10X10 Decelerations: Variable Category: Category I Pain Assessment Pain Scale: 0 Pain Presence: None/Denies Pain Type: N/A Membrane Status: Intact Datetime: 03/12/2016 01:31 Stage of : Antepartum Maternal Assessment Level of Consciousness: Fully Conscious DTR's/Clonus: DTRs 2+; No Clonus Headache: Denies Breath Sounds, Left: Clear and Equal Breath Sounds, Right: Clear and Equal Nausea/Vomiting: Denies RUQ Epigastric Pain: Denies Temperature Route: Axillary Labor Evaluation Frequency: 0 Monitor Mode: External Duration (sec)2399: 0 Heart Rate FHR Baseline Rate: 130 Monitor Mode: External US FHR Baseline Changes: No Baseline Change Variability: Moderate 6-25 bpm Pain Assessment Pain Scale: 0 Pain Presence: None/Denies Pain Type: N/A Pain Goal: 0 Membrane Status: Intact Vaginal Bleeding: None Datetime: 03/12/2016 00:34 Maternal Assessment Level of Consciousness: Fully Conscious DTR's/Clonus: DTRs 2+ Headache: Denies Blurred Vision: No Respiratory Effort: Unlabored Breath Sounds, Left: Clear and Equal Breath Sounds, Right: Clear and Equal Nausea/Vomiting: Denies RUQ Epigastric Pain: Denies Facial Edema: None Labor Evaluation Frequency: 0 Monitor Mode: External Duration (sec)2399: 0 Resting Tone [place]: Relaxed Heart Rate FHR Baseline Rate: 135 FHR Baseline Changes: No Baseline Change Variability: Moderate 6-25 bpm Accelerations: 10X10 Decelerations: None Category: Category I Pain Assessment Pain Scale: 0 Pain Presence: None/Denies Pain Type: N/A Membrane Status: Intact Datetime: 03/11/2016 19:45 Stage of : Antepartum Maternal Assessment Level of Consciousness: Fully Conscious DTR's/Clonus: DTRs 2+ Headache: Temporal Blurred Vision: No Respiratory Effort: Unlabored Breath Sounds, Left: Clear and Equal Breath Sounds, Right: Clear and Equal Nausea/Vomiting: Denies RUQ Epigastric Pain: Denies Facial Edema: None Labor Evaluation Frequency: 0 Duration (sec)2399: 0 Resting Tone [place]: Relaxed Heart Rate FHR Baseline Rate: 135 Monitor Mode: External US FHR Baseline Changes: No Baseline Change Variability: Moderate 6-25 bpm Accelerations: 10X10 Decelerations: None Category: Category I Pain Assessment Pain Scale: 5 Pain Presence: Constant Pain Type: Dull; Ache Pain Location: Head Pain Relief Measures: Comfort Measures Pain Assessment Comments: WILL CALL DR IN HOUSE FOR ANALGESIA ORDER Membrane Status: Intact Datetime: 03/11/2016 19:01 Labor Evaluation Frequency: NONE Monitor Mode: External Pattern: Normal: <= 5 Contractions in 10 Minutes Resting Tone [place]: Relaxed Heart Rate FHR Baseline Rate: 130 Monitor Mode: External US FHR Baseline Changes: No Baseline Change Variability: Moderate 6-25 bpm Accelerations: 10X10 Decelerations: None Category: Category I Datetime: 03/11/2016 18:01 Labor Evaluation Frequency: NONE Monitor Mode: External Pattern: Normal: <= 5 Contractions in 10 Minutes Resting Tone [place]: Relaxed Heart Rate FHR Baseline Rate: 130 Monitor Mode: External US FHR Baseline Changes: No Baseline Change Variability: Moderate 6-25 bpm Accelerations: 10X10 Decelerations: None Category: Category I Datetime: 03/11/2016 17:01 Labor Evaluation Frequency: NONE Monitor Mode: External Pattern: Normal: <= 5 Contractions in 10 Minutes Resting Tone [place]: Relaxed Heart Rate FHR Baseline Rate: 130 Monitor Mode: External US FHR Baseline Changes: No Baseline Change Variability: Moderate 6-25 bpm Accelerations: 10X10 Decelerations: None Category: Category I Datetime: 03/11/2016 16:01 Heart Rate FHR Baseline Rate: 120 Monitor Mode: External US FHR Baseline Changes: No Baseline Change Variability: Moderate 6-25 bpm Accelerations: 10X10 Decelerations: None Category: Category I Datetime: 03/11/2016 15:01 Labor Evaluation Frequency: NONE Monitor Mode: External Pattern: Normal: <= 5 Contractions in 10 Minutes Resting Tone [place]: Relaxed Heart Rate FHR Baseline Rate: 120 Monitor Mode: External US FHR Baseline Changes: No Baseline Change Variability: Moderate 6-25 bpm Accelerations: 10X10 Decelerations: None Category: Category I Datetime: 03/11/2016 14:01 Labor Evaluation Frequency: NONE Monitor Mode: External Duration (sec)2399: 0 Pattern: Normal: <= 5 Contractions in 10 Minutes Resting Tone [place]: Relaxed Heart Rate FHR Baseline Rate: 120 Monitor Mode: External US FHR Baseline Changes: No Baseline Change Variability: Moderate 6-25 bpm Accelerations: 10X10 Decelerations: None Category: Category I Datetime: 03/11/2016 13:01 Monitor Mode: External Duration (sec)2399: 0 Pattern: Normal: <= 5 Contractions in 10 Minutes Resting Tone [place]: Relaxed Heart Rate FHR Baseline Rate: 120 Monitor Mode: External US FHR Baseline Changes: No Baseline Change Variability: Moderate 6-25 bpm Accelerations: 10X10 Decelerations: None Category: Category I Datetime: 03/11/2016 12:01 Temperature Route: Oral Labor Evaluation Frequency: IRRIT Monitor Mode: External Pattern: Normal: <= 5 Contractions in 10 Minutes Resting Tone [place]: Relaxed Heart Rate FHR Baseline Rate: 125 Monitor Mode: External US FHR Baseline Changes: No Baseline Change Variability: Moderate 6-25 bpm Accelerations: 10X10 Decelerations: None Category: Category I Datetime: 03/11/2016 11:01 Labor Evaluation Frequency: NONE Monitor Mode: External Duration (sec)2399: 0 Pattern: Normal: <= 5 Contractions in 10 Minutes Resting Tone [place]: Relaxed Heart Rate FHR Baseline Rate: 120 FHR Baseline Changes: No Baseline Change Variability: Moderate 6-25 bpm Accelerations: 10X10 Decelerations: Variable Category: Category I Datetime: 03/11/2016 10:01 Labor Evaluation Frequency: NONE Monitor Mode: External Duration (sec)2399: 0 Pattern: Normal: <= 5 Contractions in 10 Minutes Resting Tone [place]: Relaxed Heart Rate FHR Baseline Rate: 125 Heart Rate FHR Baseline Rate: 130 Monitor Mode: External US FHR Baseline Changes: No Baseline Change Variability: Moderate 6-25 bpm Accelerations: 10X10 Accelerations: 15X15 Decelerations: None Category: Category I Datetime: 03/11/2016 09:01 Labor Evaluation Frequency: NONE Monitor Mode: External Pattern: Normal: <= 5 Contractions in 10 Minutes Resting Tone [place]: Relaxed Heart Rate FHR Baseline Rate: 120 Monitor Mode: External US FHR Baseline Changes: No Baseline Change Variability: Moderate 6-25 bpm Accelerations: 10X10 Decelerations: None Category: Category I Datetime: 03/11/2016 08:01 Maternal Assessment Level of Consciousness: Fully Conscious DTR's/Clonus: DTRs 2+; No Clonus Headache: Denies Breath Sounds, Left: Clear and Equal Breath Sounds, Right: Clear and Equal Nausea/Vomiting: Present RUQ Epigastric Pain: Denies Temperature Route: Oral Labor Evaluation Frequency: X1/HR Monitor Mode: External Duration (sec)2399: 60 SEC Quality: Mild Pattern: Normal: <= 5 Contractions in 10 Minutes Resting Tone [place]: Relaxed Contraction Comments: PT DENIES Heart Rate FHR Baseline Rate: 130 Monitor Mode: External US FHR Baseline Changes: No Baseline Change Variability: Moderate 6-25 bpm Accelerations: 15X15 Decelerations: None Category: Category I Datetime: 03/11/2016 07:32 Assessment Type: Ongoing Assessment Blurred Vision: No Respiratory Effort: Unlabored; Regular Rhythm; Equal Expansion Lower Extremities Edema: None Degree: None Upper Extremities Edema: None Degree: None Facial Edema: None Fall Risk Assessment History of Falling: (0) No Secondary Diagnosis: (0) No Ambulatory Aid: (0) Bedrest/Nurse Assist IV Therapy: (0) No Gait: (0) Normal/Bedrest/Immobile Mental Status: (0) Oriented to Own Ability Fall Score: 0 Fall Risk Score Definition: No Risk: No action required Datetime: 03/11/2016 07:20 Stage of : Antepartum Datetime: 03/11/2016 07:00 Labor Evaluation Frequency: NONE Monitor Mode: External Quality: Mild Resting Tone [place]: Relaxed Heart Rate FHR Baseline Rate: 130 Monitor Mode: External US Variability: Minimal - Undetectable to <=5 bpm Accelerations: 10X10 Decelerations: None Comments: AGA Pain Presence: None/Denies Pain Type: N/A Datetime: 03/11/2016 06:00 DTR's/Clonus: DTRs 2+; No Clonus Labor Evaluation Frequency: NONE Monitor Mode: External Quality: Mild Resting Tone [place]: Relaxed Heart Rate FHR Baseline Rate: 120 Monitor Mode: External US Variability: Minimal - Undetectable to <=5 bpm Accelerations: None Decelerations: Variable Comments: AGA Pain Presence: None/Denies Pain Type: N/A Pain Assessment Comments: PT STATES SHE DOESN'T FEEL CRAMPING ANYMORE Datetime: 03/11/2016 05:00 Heart Rate FHR Baseline Rate: 125 Comments: LOC DUE TO PT SLEEPING ON HER SIDE Pain Presence: None/Denies Pain Type: N/A Datetime: 03/11/2016 04:00 DTR's/Clonus: DTRs 2+; No Clonus Breath Sounds, Left: Clear and Equal Breath Sounds, Right: Clear and Equal Labor Evaluation Frequency: X1 Monitor Mode: External Duration (sec)2399: 80 Quality: Mild Resting Tone [place]: Relaxed Heart Rate FHR Baseline Rate: 120 Monitor Mode: External US Variability: Minimal - Undetectable to <=5 bpm Accelerations: 10X10 Decelerations: None Comments: AGA Pain Presence: Intermittent Pain Type: N/A Datetime: 03/11/2016 03:23 Stage of : Antepartum Datetime: 03/11/2016 03:00 Heart Rate FHR Baseline Rate: 120 Monitor Mode: External US Variability: Minimal - Undetectable to <=5 bpm Accelerations: 10X10 Decelerations: None Comments: AGA Datetime: 03/11/2016 02:00 DTR's/Clonus: DTRs 2+; No Clonus Monitor Mode: External US Variability: Moderate 6-25 bpm Accelerations: 10X10 Decelerations: None Comments: AGA Pain Presence: None/Denies Pain Type: N/A Datetime: 03/11/2016 01:00 Stage of : Antepartum Labor Evaluation Frequency: X2 Monitor Mode: External Duration (sec)2399: 60-130 Quality: Mild Resting Tone [place]: Relaxed Heart Rate FHR Baseline Rate: 120 Monitor Mode: External US Variability: Minimal - Undetectable to <=5 bpm Accelerations: 10X10 Decelerations: None Comments: AGA Pain Type: N/A Pain Location: Abdomen Datetime: 03/11/2016 00:00 DTR's/Clonus: DTRs 2+; No Clonus Breath Sounds, Left: Clear and Equal Breath Sounds, Right: Clear and Equal Heart Rate FHR Baseline Rate: 130 Monitor Mode: External US Variability: Moderate 6-25 bpm Accelerations: 15X15 Decelerations: Variable Comments: AGA Datetime: 03/10/2016 23:00 Labor Evaluation Frequency: NONE Monitor Mode: External Quality: Mild Resting Tone [place]: Relaxed Heart Rate FHR Baseline Rate: 120 Monitor Mode: External US Variability: Moderate 6-25 bpm Accelerations: 15X15 Decelerations: Variable Comments: AGA Pain Presence: None/Denies Pain Type: N/A Datetime: 03/10/2016 22:00 DTR's/Clonus: DTRs 2+; No Clonus Labor Evaluation Frequency: NONE Monitor Mode: External Quality: Mild Resting Tone [place]: Relaxed Heart Rate FHR Baseline Rate: 130 Monitor Mode: External US Variability: Minimal - Undetectable to <=5 bpm Accelerations: 15X15 Decelerations: Variable Comments: AGA Pain Presence: None/Denies Pain Type: N/A Datetime: 03/10/2016 20:00 Labor Evaluation Frequency: NONE Monitor Mode: External Quality: Mild Resting Tone [place]: Relaxed Pain Presence: None/Denies Pain Type: N/A Datetime: 03/10/2016 19:25 Stage of : Antepartum Assessment Type: Ongoing Assessment Maternal Assessment Level of Consciousness: Fully Conscious DTR's/Clonus: DTRs 2+; No Clonus Headache: Denies Blurred Vision: No Respiratory Effort: Unlabored; Regular Rhythm; Equal Expansion Breath Sounds, Left: Clear and Equal Breath Sounds, Right: Clear and Equal Nausea/Vomiting: Denies RUQ Epigastric Pain: Denies Lower Extremities Edema: None Degree: None Upper Extremities Edema: None Degree: None Facial Edema: None Temperature Route: Oral Fall Risk Assessment History of Falling: (0) No Secondary Diagnosis: (0) No Ambulatory Aid: (0) Bedrest/Nurse Assist IV Therapy: (0) No Gait: (0) Normal/Bedrest/Immobile Mental Status: (0) Oriented to Own Ability Fall Score: 0 Fall Risk Score Definition: No Risk: No action required Pain Assessment Pain Scale: 2 Pain Presence: Intermittent Pain Type: Cramping Pain Location: Abdomen Pain Goal: 0 Pain Relief Measures: Comfort Measures Datetime: 03/10/2016 19:00 Stage of : Antepartum Temperature Route: Oral Monitor Mode: External Pattern: Normal: <= 5 Contractions in 10 Minutes Resting Tone [place]: Relaxed Heart Rate FHR Baseline Rate: 140 Monitor Mode: External US FHR Baseline Changes: No Baseline Change Variability: Moderate 6-25 bpm Accelerations: 15X15 Decelerations: None Comments: AGA Datetime: 03/10/2016 17:25 Assessment Type: Admission Assessment Maternal Assessment Level of Consciousness: Fully Conscious DTR's/Clonus: DTRs 2+; No Clonus Headache: Denies Blurred Vision: No Respiratory Effort: Unlabored; Regular Rhythm; Equal Expansion Breath Sounds, Left: Clear and Equal Breath Sounds, Right: Clear and Equal Nausea/Vomiting: Denies RUQ Epigastric Pain: Denies Lower Extremities Edema: None Degree: None Upper Extremities Edema: None Degree: None Facial Edema: None Fall Risk Assessment History of Falling: (0) No Secondary Diagnosis: (0) No Ambulatory Aid: (0) Bedrest/Nurse Assist IV Therapy: (0) No Gait: (0) Normal/Bedrest/Immobile Mental Status: (0) Oriented to Own Ability Fall Score: 0 Fall Risk Score Definition: No Risk: No action required Labor Evaluation Frequency: IRRIT Monitor Mode: External Pattern: Normal: <= 5 Contractions in 10 Minutes Resting Tone [place]: Relaxed Heart Rate FHR Baseline Rate: 130 Monitor Mode: External US FHR Baseline Changes: No Baseline Change Variability: Moderate 6-25 bpm Accelerations: 15X15 Decelerations: None Category: Category I Datetime: 03/10/2016 13:24 Fall Score: 0 Fall Risk Score Definition: No Risk: No action required Datetime: 03/10/2016 13:22 Time of Arrival: 03/10/2016 16:15 EGA: 24.1 Arrived By: Ambulatory
== END 2016-04-04 15:15 | disposition home or self-care (01) ==
LOC: OBT 10:46 → L-D 10:46 → OBT 15:15
PROVIDERS: ATTEND Obstetrics & Gynecology
DX: O62.9 Abnormality of forces of labor, unspecified (principal); O26.892 Other specified pregnancy related conditions, second trimester; Z3A.27 27 weeks gestation of pregnancy
CPT/HCPCS: 36415; 76815; 76817; 81003; 85025; 96360; 96361; J7120; Z7500; G0463

== ENCOUNTER 2016-04-24 12:40 | Inpatient (IN) | payer OTHER ==
[~2016-04-24] VITALS: Ht 306.8 cm; Wt 60.5 kg
[~2016-04-24 12:40] MED LIST changes: +AMO500 PO; +NIFE10CA19 PO
[2016-04-24 13:46] VITALS: Ht 306.8 cm; Wt 60.5 kg
[2016-04-24 13:47] VITALS: BP 114/58; PULSE 86; RESP 18
--- NOTE | 2016-04-24 14:10 | RADRPT ---
PROCEDURE: US OB. CLINICAL INDICATION: Size and dates , contractions TECHNIQUE: Multiple sonographic images of the pelvis and gravid uterus were obtained. The images were reviewed on a PACS workstation. COMPARISON: 04/04/16 FINDINGS: There is a single viable intrauterine gestation. Cardiac activity is present with 129 beats per min [place]. There is a footling breech presentation. The placenta is fundal. There is no evidence for an abruption or placenta previa. Measurements were made in order to determine age. The results are as follows: BPD =7.9 cm HC =28.2 cm AC =29 cm FL =5.7 cm Estimated gestational age of approximately 31 weeks and 3 days based on ultrasound measurements. Clinical age: 30 weeks and 4 days. The estimated date of delivery is 06/23/16, based on ultrasound measurements. The EFW = 1849 g, 80.4%, based on LMP age. RPTAT: AA IMPRESSION: Single viable intrauterine gestation of approximately 31 weeks and 3 days based on ultrasound measu rements. The presentation is footling breech. .Stan Foley MD, MD Date Time Electronically viewed and signed by .Stan Foley MD, on 04/24/2016 14:10 .S/
--- NOTE | 2016-04-24 14:45 | RADRPT ---
PROCEDURE: US biophysical profile. CLINICAL INDICATION: Decreased motion. Contractions. TECHNIQUE: Multiple sonographic images of the uterus were obtained. Transvaginal sonogra phy of the cervix was performed. The images were reviewed on a PACS workstation. COMPARISON: No prior studies are available for comparison. FINDINGS: There is a single live intrauterine gestation. heart rate is 125 beats per minute. The position is footling breech. The placenta is fundal grade 1 with no abruption or previa. The JORDON is 12.8 cm. (Normal = 5-20 cm.) Transvaginal cervical length is 2.6 cm. The cervix is closed. Breathing Movement: 2 Gross Body Movement: 2 Tone: 2 Qualitative Amniotic Fluid Volume: 2 TOTAL: 8 IMPRESSION: 1. The biophysical score is 8/8. 2. Position is footling breech. 3. Cervical length is 2.6 cm. RPTAT: QQ .John Crocker MD, Date Time Electronically viewed and signed by .John Crocker MD, on 04/24/2016 14:45 .R/
[2016-04-24] MEDS ORDERED: TERBUTALINE 1 MG/ML INJ SC STA (16:41)
[2016-04-24] MEDS: LACTATED RINGER'S 1,000 ML IV SCH ×3 (17:47→23:10)
--- NOTE | 2016-04-24 19:31 | HP ---
Date/Time of Note Date/Time of Note DATE: 04/24/16 TIME: 19:28 OB - History Hx of Present Chief Complaint: contractions Estimated Due Date: Jun 29, 2016 : 6 Para: 4 Spontaneous : 0 Therapeutic : 1 Care: Good Care Obstetrical Complications: None Medical Complications: None Past Family/Social History * Past Medical, Surgical, Family and Obstetric Histories reviewed from chart. GBS Status: Positive OB Admission Exam Vital Signs Vital Signs Vital Signs Date Time Temp Pulse Resp B/P Pulse Ox O2 Delivery O2 Flow Rate FiO2 04/24/16 13:47 98.2 86 18 114/58 100 Room Air Physical Exam HEENT: WNL Heart: Rhythm Normal Lungs: Clear Abdomen: WNL Extremities: Normal Cervical Dilatation: 1cm Effacement: 50% Station: -2 Membranes: Intact OB Assessment/Plan Reason for admission: labor Plan: Other Other plan: IV magnesium sulfate for tocolysis IM betamethasone ECHO RILEY MD Apr 24, 2016 19:31
[2016-04-24] MEDS ORDERED: ACETAMINOPHEN 325 MG TAB PO PRN (20:00)
[2016-04-24] MEDS ORDERED: MAGNESIUM SULFATE 4 GM/100 ML 100 ML IV ONE (20:00)
[2016-04-24 20:33] LABS: INR 1.07; PROTIME 13.9 Sec (12.2-14.2); PT RATIO 1.1
[2016-04-24] MEDS: BETAMET NA PHOS/AC(6 MG/ML) 5ML INJ IM SCH (20:33)
[2016-04-24 20:34] LABS: PARTIAL THROMBOPLASTIN TIME 28.5 Sec (25.0-35.0)
[2016-04-24] MEDS: MAGNESIUM SULFATE 20 GM/500 ML 500 ML IV SCH (20:55)
[2016-04-24 22:08] LABS: ADD UMIC YES; URINE BILIRUBIN (Dip) NEGATIVE (NEGATIVE); URINE BLOOD (Dip) NEGATIVE (NEGATIVE); URINE COLOR LT. YELLOW (YELLOW); URINE GLUCOSE (Dip) NEGATIVE (NEGATIVE); URINE KETONES (Dip) 3+ (NEGATIVE); URINE LEUKOCYTE ESTERASE (Dip) TRACE (NEGATIVE); URINE NITRITE (Dip) NEGATIVE (NEGATIVE); URINE TOTAL PROTEIN (Dip) NEGATIVE (NEGATIVE); URINE UROBILINOGEN (Dip) 0.2 E.U./dL (0.1-1.0)
[2016-04-24 22:16] LABS: BASOPHILS % 0.3 % (0.0-2.0); EOSINOPHILS # 0.1 10^3/ul (0.0-0.5); EOSINOPHILS % 0.5 % (0.0-7.0); HEMOGLOBIN 11.7 g/dl (12.0-16.0); LYMPHOCYTES # 1.5 10^3/ul (0.8-2.9); LYMPHOCYTES % 13.1 % (15.0-51.0); MEAN CORPUSCULAR HEMOGLOBIN 31.6 pg (29.0-33.0); MEAN CORPUSCULAR HGB CONC 34.3 g/dl (32.0-37.0); MEAN CORPUSCULAR VOLUME 92.2 fl (82.0-101.0); MONOCYTE # 0.7 10^3/ul (0.3-0.9); MONOCYTES % 6.6 % (0.0-11.0); NEUTROPHIL # 8.9 10^3/ul (1.6-7.5); NEUTROPHILS % 79.5 % (39.0-77.0); PLATELET COUNT 235 10^3/UL (140-440); RED BLOOD COUNT 3.69 10^6/ul (4.20-5.40); RED CELL DISTRIBUTION WIDTH 13.1 % (11.5-14.5); UNCORRECTED WBC 11.1 10^3/ul (4.8-10.8); WHITE BLOOD COUNT 11.1 10^3/ul (4.8-10.8)
[2016-04-24 22:18] LABS: CONDITION 1
[2016-04-24 22:20] LABS: BACTERIA,URINE FEW; MUCUS,URINE FEW; URINE RBCS 0-2 /HPF (0)
[2016-04-25] MEDS: LACTATED RINGER'S 1,000 ML IV SCH ×4 (02:40→23:10)
[2016-04-25] MEDS: MAGNESIUM SULFATE 20 GM/500 ML 500 ML IV SCH ×2 (06:16→15:34)
[2016-04-25] MEDS: MULTIVIT/MIN/FOLATE/IRON/PREN TAB PO SCH (11:00)
[2016-04-25] MEDS ORDERED: ONDANSETRON 4 MG INJ IV PRN (19:30)
[2016-04-25] MEDS: BETAMET NA PHOS/AC(6 MG/ML) 5ML INJ IM SCH (20:38)
--- NOTE | 2016-04-25 23:14 | PN ---
Date/Time of Note Date/Time of Note DATE: 04/25/16 TIME: 23:12 OB Subjective Subjective Subjective 26 yo @ 30wks5 days, admitted in PTL s/p 2nd dose of betamethasone on magnesium sulfate, which was reduced to 1.5gm/hr secondary to patient having nausea d/c magnesium sulfate 24 hrs after second dose of betamethasone and re-evaluate disposition at that point. SARAH JONES MD Apr 25, 2016 23:14
[2016-04-26] MEDS: LACTATED RINGER'S 1,000 ML IV SCH ×2 (03:53→17:16)
[2016-04-26] MEDS: MAGNESIUM SULFATE 20 GM/500 ML 500 ML IV SCH ×2 (03:55→16:56)
[2016-04-26] MEDS: MULTIVIT/MIN/FOLATE/IRON/PREN TAB PO SCH (09:02)
--- NOTE | 2016-04-26 18:02 | QN ---
Documentation Comment No complaint Afebrile VSS Strip Reactive D/C magnesium sulfate Monitor for contractions ECHO RILEY MD Apr 26, 2016 18:02
[2016-04-27] MEDS: LACTATED RINGER'S 1,000 ML IV SCH (06:19)
[2016-04-27] MEDS: MULTIVIT/MIN/FOLATE/IRON/PREN TAB PO SCH (08:58)
[2016-04-27] MEDS ORDERED: PRENAT PO ×2 (11:00→11:06)
--- NOTE | 2016-04-27 17:44 | DS ---
DATE OF ADMISSION: 04/24/2016 DATE OF DISCHARGE: 04/27/2016 ADMITTING DIAGNOSIS: labor. HISTORY: A 26-year-old female 6, para 4, presented with complaint of contractions. The pat ient was noted to have cervical change. The patient was admitted to antepartum unit. Patient was g iven intravenous magnesium sulfate for tocolysis and intramuscular betamethasone was given for lung maturity. The patient responded well to the management. After completing the course of betam ethasone, magnesium sulfate was discontinued. The patient has not had any significant contractions or cervical change while being off magnesium sulfate. The patient is discharged on 04/27/2016. CONDITION ON DISCHARGE: Stable. DISCHARGE INSTRUCTIONS DIET: Regular. ACTIVITIES: Modified bed rest at home. MEDICATIONS: Continue with vitamins. FOLLOWUP: In the office in 1 week. FINAL DIAGNOSES: 1. , not delivered. 2. Threatened labor. Dictated By: ECHO BATEMAN/JEREMY Conf#: [id number] DID#: [id number]
== END 2016-04-27 11:50 | disposition home or self-care (01) | DRG 778 ==
LOC: OBT 12:40 → L-D 12:40 → OBT 19:25 → L-D 19:32 → OBG 22:02
PROVIDERS: ADMIT Obstetrics & Gynecology; ATTEND Obstetrics & Gynecology
DX: O60.03 Preterm labor without delivery, third trimester (principal); Z3A.30 30 weeks gestation of pregnancy
CPT/HCPCS: 76815; 76817; 76818; 81001; 81003; 83735; 85025; 85610; 85730; 86592; 86850; 86900; 86901; 87086; 96360; 96361; 96372; G0463; J0702; J2405; J3105; J3475; J7120

== ENCOUNTER 2016-05-31 11:38 | Outpatient (CLI) | payer OTHER ==
[~2016-05-31] VITALS: Ht 152.4 cm; Wt 61.2 kg
[2016-05-31 11:56] VITALS: BP 108/61; PULSE 93; Ht 152.4 cm; Wt 61.2 kg
[2016-05-31] MEDS ORDERED: PRENAT PO (11:58)
--- NOTE | 2016-05-31 14:51 | RADRPT ---
PROCEDURE: US OB biophysical profile. CLINICAL INDICATION: labor. TECHNIQUE: Multiple sonographic images of the pelvis were obtained. The images were reviewed on a PACS workstation. COMPARISON: Following of the sonogram 04/24/2016. FINDINGS: Cardiac activity is present with 134 beats per minute. There is a cephalic presentation. The placenta is grade 1/grade 2 with a fundal placenta location. Amniotic fluid index: 12.4 cm Biophysical profile: movement 2/2 tone 2/2. breathing 2/2 JORDON 2/2 Total 10/08 IMPRESSION: 1. Normal biophysical profile. 2. The viable fetus changed positions and now presents with a cephalic presentation with a heart ra te of 134 beats per minute. RPTAT:AAJJ . Physician Jun Date Time Electronically viewed and signed by Ignacio Jeffers Physician on 05/31/2016 14:50 HORACE/
--- NOTE | 2016-07-11 18:49 | QN ---
Documentation Comment Diagnosis: Threatened Labor. ECHO RILEY MD July 11, 2016 18:49
== END 2016-05-31 15:20 | disposition home or self-care (01) ==
LOC: OBT 11:38 → L-D 11:38 → OBT 15:20
PROVIDERS: ATTEND Obstetrics & Gynecology
DX: O60.00 Preterm labor without delivery, unspecified trimester (principal); Z3A.00 Weeks of gestation of pregnancy not specified
CPT/HCPCS: 76818; Z7500; G0463

== ENCOUNTER 2016-06-01 11:07 | Inpatient (IN) | payer OTHER ==
[~2016-06-01] VITALS: Ht 152.4 cm; Wt 61.0 kg
[~2016-06-01 11:07] MED LIST changes: -AMO500 PO; -CALC500T12 PO; -IRON1TAB77 PO; -NIFE10CA19 PO
[2016-06-01 11:32] VITALS: Ht 152.4 cm; Wt 61.0 kg
[2016-06-01 11:33] VITALS: BP 98/57; PULSE 109; RESP 20
--- NOTE | 2016-06-01 12:51 | RADRPT ---
PROCEDURE: US OB limited study for amniotic fluid index. CLINICAL INDICATION: LEAKAGE OF FLUID TECHNIQUE: Multiple sonographic images of the pelvis were obtained. The images were reviewed on a PACS workstation. COMPARISON: Ultrasound OB biophysical profile 05/31/2016. FINDINGS: Presentation: Cephalic. Cardiac activity is present with 146.25 beats per minute. The placenta is fundal grade 2 placenta. MVP: Amniotic fluid index: 9.1 cm IMPRESSION: 1. Amniotic fluid index equals 9.1 cm. This measured 12.4 cm on the prior study dated 05/31/2016. . Physician Jun Date Time Electronically viewed and signed by Physician Jun on 06/01/2016 12:51 HORACE/
[2016-06-01 12:56] LABS: ADD SCAN DIFF NO
[2016-06-01 13:03] LABS: BASOPHILS % 0.3 % (0.0-2.0); EOSINOPHILS # 0.1 10^3/ul (0.0-0.5); EOSINOPHILS % 0.7 % (0.0-7.0); HEMATOCRIT 31.4 % (37.0-47.0); HEMOGLOBIN 10.4 g/dl (12.0-16.0); LYMPHOCYTES # 1.2 10^3/ul (0.8-2.9); LYMPHOCYTES % 17.7 % (15.0-51.0); MEAN CORPUSCULAR HEMOGLOBIN 29.4 pg (29.0-33.0); MEAN CORPUSCULAR HGB CONC 33.1 g/dl (32.0-37.0); MEAN CORPUSCULAR VOLUME 88.7 fl (82.0-101.0); MEAN PLATELET VOLUME 11.4 fl (7.4-10.4); MONOCYTE # 0.7 10^3/ul (0.3-0.9); MONOCYTES % 9.9 % (0.0-11.0); NEUTROPHIL # 4.8 10^3/ul (1.6-7.5); NEUTROPHILS % 70.4 % (39.0-77.0); PLATELET COUNT 280 10^3/UL (140-415); RED BLOOD COUNT 3.54 10^6/ul (4.20-5.40); RED CELL DISTRIBUTION WIDTH 12.7 % (11.5-14.5); WHITE BLOOD COUNT 6.9 10^3/ul (4.8-10.8)
[2016-06-01 13:10] LABS: ADD UMIC YES; URINE BILIRUBIN (Dip) NEGATIVE (NEGATIVE); URINE BLOOD (Dip) NEGATIVE (NEGATIVE); URINE COLOR LT. YELLOW (YELLOW); URINE GLUCOSE (Dip) NEGATIVE (NEGATIVE); URINE KETONES (Dip) NEGATIVE (NEGATIVE); URINE LEUKOCYTE ESTERASE (Dip) TRACE (NEGATIVE); URINE NITRITE (Dip) NEGATIVE (NEGATIVE); URINE TOTAL PROTEIN (Dip) NEGATIVE (NEGATIVE); URINE UROBILINOGEN (Dip) 1.0 E.U./dL (0.1-1.0)
[2016-06-01 13:26] LABS: BACTERIA,URINE RARE; URINE RBCS 0-2 /HPF (0)
[2016-06-01 16:28] LABS: INR 1.01; PARTIAL THROMBOPLASTIN TIME 30.2 Sec (25.0-35.0); PROTIME 13.3 Sec (12.2-14.2)
[2016-06-01] MEDS ORDERED: OXYTOCIN 30 UNITS/LR 500 ML IV SCH ×2 (16:30)
[2016-06-01] MEDS ORDERED: IBUPROFEN 600 MG TAB PO PRN (16:30)
[2016-06-01] MEDS ORDERED: AMPICILLIN 2 GM/NS (PMX) 100 ML IV ONE (16:30)
[2016-06-01] MEDS ORDERED: OXYTOCIN 30 UNITS/LR 500 ML IV PRN (16:30)
[2016-06-01] MEDS ORDERED: LIDOCAINE 1% (MPF) 30 ML INJ INJ PRN (16:30)
[2016-06-01] MEDS ORDERED: MISOPROSTOL 200 MCG TAB PR PRN (16:30)
[2016-06-01] MEDS ORDERED: CARBOPROST 250 MCG INJ IM PRN (16:30)
[2016-06-01] MEDS ORDERED: METHYLERGONOVINE 0.2 MG INJ IM PRN (16:30)
[2016-06-01] MEDS: BUTORPHANOL 2 MG INJ IV PRN (17:16)
[2016-06-01] MEDS: LACTATED RINGER'S 1,000 ML IV SCH (17:16)
[2016-06-01] MEDS: AMPICILLIN 1 GM/NS (PMX) 50 ML IV SCH (21:58)
[2016-06-02] MEDS: AMPICILLIN 1 GM/NS (PMX) 50 ML IV SCH ×3 (00:31→09:08)
[2016-06-02] MEDS: LACTATED RINGER'S 1,000 ML IV SCH ×3 (00:31→15:45)
--- NOTE | 2016-06-02 00:53 | HP ---
Date/Time of Note Date/Time of Note DATE: 06/02/16 TIME: 00:50 OB - History Hx of Present Chief Complaint: contractions Estimated Due Date: Jun 29, 2016 : 6 Para: 4 Spontaneous : 0 Therapeutic : 1 Care: Good Care Ultrasounds: Normal mid trimester US Obstetrical Complications: Other ( labor) Medical Complications: None Past Family/Social History * Past Medical, Surgical, Family and Obstetric Histories reviewed from chart. GBS Status: Positive OB Admission Exam Vital Signs Vital Signs Vital Signs Date Time Temp Pulse Resp B/P Pulse Ox O2 Delivery O2 Flow Rate FiO2 06/01/16 11:33 98.2 109 20 98/57 Room Air Physical Exam HEENT: WNL Heart: Rhythm Normal Lungs: Clear Abdomen: WNL Extremities: Normal Cervical Dilatation: 2cm Effacement: 50% Station: 0 Membranes: Intact Heart Rate: 140's Accelerations: Accelerations Present Decelerations: No Decelerations Varibility: Moderate Last 72 hours Lab Results CBC & BMP 06/01/16 12:05 OB Assessment/Plan Reason for admission: labor Plan: Expectant Management ECHO RILEY MD Jun 02, 2016 00:53
[2016-06-02] MEDS: BUTORPHANOL 2 MG INJ IV PRN (02:09)
--- NOTE | 2016-06-02 19:52 | DS ---
DATE OF ADMISSION: 06/01/2016 DATE OF DISCHARGE: 06/02/2016 ADMITTING DIAGNOSIS: at 36 weeks with labor. HISTORY: A 26-year-old female 6, para 3-1-1-4, estimated date of delivery 06/29/2016 at 36 weeks' gestation presented with contractions. At the time of admission, the patient was about 2 cm dilated. The patient was admitted for labor. The patient was given intravenous hydration a nd intravenous ampicillin for group B strep prophylaxis. The patient was for expectant management. The patient's contractions spaced out. The patient did not have any further cervical dilation. Th e patient is discharged on 06/02/2016. CONDITION ON DISCHARGE: Stable. DISCHARGE INSTRUCTIONS: Diet regular. Activities as tolerated. MEDICATIONS: Continue with vitamins. FOLLOWUP: In the office in 3 days. FINAL DIAGNOSES: 1. , not delivered. 2. Threatened labor. Dictated By: ECHO BATEMAN/JEREMY Conf#: [id number] DID#: [id number]
== END 2016-06-02 18:25 | disposition home or self-care (01) | DRG 780 ==
LOC: OBT 11:07 → L-D 11:07 → OBT 16:10
PROVIDERS: ADMIT Obstetrics & Gynecology; ATTEND Obstetrics & Gynecology
DX: O47.03 False labor before 37 completed weeks of gestation, third trimester (principal); Z3A.36 36 weeks gestation of pregnancy
CPT/HCPCS: 76815; 81001; 81003; 84112; 85025; 85610; 85730; 86592; 86900; 86901; G0463; J0290; J7120

== ENCOUNTER 2016-06-18 22:47 | Inpatient (IN) | payer OTHER ==
[~2016-06-18] VITALS: Ht 152.4 cm; Wt 62.4 kg
[2016-06-18 22:59] VITALS: BP 98/55; PULSE 88; RESP 20
[2016-06-18] MEDS ORDERED: METHYLERGONOVINE 0.2 MG INJ IM PRN (23:30)
[2016-06-18] MEDS ORDERED: CARBOPROST 250 MCG INJ IM PRN (23:30)
[2016-06-18] MEDS ORDERED: OXYTOCIN 30 UNITS/LR 500 ML IV PRN (23:30)
[2016-06-18] MEDS ORDERED: IBUPROFEN 600 MG TAB PO PRN (23:30)
[2016-06-18] MEDS ORDERED: OXYTOCIN 30 UNITS/LR 500 ML IV SCH ×2 (23:30)
[2016-06-18] MEDS ORDERED: MISOPROSTOL 200 MCG TAB PR PRN (23:30)
[2016-06-18] MEDS ORDERED: LACTATED RINGER'S 1,000 ML IV PRN (23:30)
[2016-06-18] MEDS ORDERED: LIDOCAINE 1% (MPF) 30 ML INJ INJ PRN (23:30)
--- NOTE | 2016-06-18 23:33 | TRIAGE ---
OB Triage Datetime Report Generated by CPN: 06/18/2016 23:33 Datetime: 06/18/2016 23:26 Assessment Type: Admission Assessment Vaginal Bleeding: None Maternal Assessment Level of Consciousness: Fully Conscious DTR's/Clonus: DTRs 2+; No Clonus Headache: Denies Blurred Vision: No Respiratory Effort: Unlabored; Regular Rhythm; Equal Expansion Breath Sounds, Left: Clear and Equal Breath Sounds, Right: Clear and Equal Nausea/Vomiting: Denies RUQ Epigastric Pain: Denies Facial Edema: None Fall Risk Assessment History of Falling: (0) No Secondary Diagnosis: (0) No Ambulatory Aid: (0) Bedrest/Nurse Assist Gait: (0) Normal/Bedrest/Immobile Mental Status: (0) Oriented to Own Ability Pain Assessment Pain Scale: 8 Pain Presence: Intermittent Pain Type: Contraction Pain Location: Abdomen Datetime: 06/18/2016 23:25 Time of Arrival: 06/18/2016 23:25 EGA: 38.3 Arrived By: Ambulatory Arrived From: Home Chief Complaint: Uc's Movement: Present Contractions: Irregular Time Contractions Began: 06/18/2016 19:00 Rupture of Membranes: Denies Vaginal Bleeding: None Vaginal Discharge: Denies Recent Sexual Intercouse: Denies Abdominal Trauma: Not Applicable Patient Complaints: Contractions Time Provider Notified: 06/18/2016 23:00 Provider Notified: yes Initial Plan: Admit to L_D Datetime: 06/18/2016 23:07 Vaginal Exam Dilatation (cms): 5.0 Effacement (%): 90 Station: -3 Exam By: CH Datetime: 06/02/2016 17:49 Labor Evaluation Frequency: IRREGULAR Monitor Mode: External Duration (sec)2399: 50-160 Quality: Mild Pattern: Normal: <= 5 Contractions in 10 Minutes Resting Tone [place]: Relaxed Heart Rate FHR Baseline Rate: 140 Monitor Mode: External US FHR Baseline Changes: No Baseline Change Variability: Moderate 6-25 bpm Accelerations: 15X15 Decelerations: None Category: Category I Datetime: 06/02/2016 17:18 Vaginal Exam Dilatation (cms): 2.5 Effacement (%): 60 Station: -2 Exam By: DELMARIELYAD Datetime: 06/02/2016 16:55 Labor Evaluation Frequency: IRREGULAR Monitor Mode: External Duration (sec)2399: 50-120 Quality: Moderate Pattern: Normal: <= 5 Contractions in 10 Minutes Resting Tone [place]: Relaxed Heart Rate FHR Baseline Rate: 145 Monitor Mode: External US FHR Baseline Changes: No Baseline Change Variability: Moderate 6-25 bpm Accelerations: 15X15 Decelerations: None Category: Category I Pain Assessment Pain Scale: 10 Pain Presence: Intermittent Pain Type: Cramping; Contraction Pain Location: Abdomen Pain Goal: 4 Pain Relief Measures: Comfort Measures Pain Assessment Comments: PT REFUSES PAIN MEDICATION Datetime: 06/02/2016 16:25 Temperature Route: Oral Datetime: 06/02/2016 15:48 Labor Evaluation Frequency: OCCAS Monitor Mode: External Duration (sec)2399: 50-120 Quality: Moderate Pattern: Normal: <= 5 Contractions in 10 Minutes Resting Tone [place]: Relaxed Heart Rate FHR Baseline Rate: 135 Monitor Mode: External US FHR Baseline Changes: No Baseline Change Variability: Moderate 6-25 bpm Accelerations: 15X15 Decelerations: None Category: Category I Datetime: 06/02/2016 15:08 Monitor Mode: External US Datetime: 06/02/2016 14:55 Labor Evaluation Frequency: OCCAS Monitor Mode: External Duration (sec)2399: 50-120 Quality: Moderate Pattern: Normal: <= 5 Contractions in 10 Minutes Resting Tone [place]: Relaxed Heart Rate FHR Baseline Rate: 145 Monitor Mode: External US FHR Baseline Changes: No Baseline Change Variability: Moderate 6-25 bpm Accelerations: 15X15 Decelerations: None Category: Category I Datetime: 06/02/2016 14:35 Monitor Mode: External US Datetime: 06/02/2016 14:08 Monitor Mode: External US Datetime: 06/02/2016 13:55 Labor Evaluation Frequency: 3/HR Monitor Mode: External Duration (sec)2399: 80-100 Quality: Moderate Pattern: Normal: <= 5 Contractions in 10 Minutes Resting Tone [place]: Relaxed Heart Rate FHR Baseline Rate: 145 Monitor Mode: External US FHR Baseline Changes: No Baseline Change Variability: Moderate 6-25 bpm Accelerations: 15X15 Decelerations: None Category: Category I Datetime: 06/02/2016 12:55 Labor Evaluation Frequency: IRREGULAR Monitor Mode: External Duration (sec)2399: 60-100 Quality: Mild Pattern: Normal: <= 5 Contractions in 10 Minutes Resting Tone [place]: Relaxed Heart Rate FHR Baseline Rate: 135 Monitor Mode: External US FHR Baseline Changes: No Baseline Change Variability: Moderate 6-25 bpm Accelerations: 15X15 Decelerations: None Category: Category I Pain Assessment Pain Scale: 5 Pain Presence: Intermittent Pain Type: Cramping; Contraction Pain Location: Abdomen Pain Goal: 5 Pain Relief Measures: Comfort Measures Pain Assessment Comments: PT STATS HER PAIN DECREASED A LITTLE Datetime: 06/02/2016 11:55 Labor Evaluation Frequency: IRREGULAR Monitor Mode: External Duration (sec)2399: 40-130 Quality: Mild Pattern: Normal: <= 5 Contractions in 10 Minutes Resting Tone [place]: Relaxed Heart Rate FHR Baseline Rate: 140 Monitor Mode: External US FHR Baseline Changes: No Baseline Change Variability: Moderate 6-25 bpm Accelerations: 15X15 Decelerations: None Category: Category I Datetime: 06/02/2016 10:00 Labor Evaluation Frequency: IRREGULAR Monitor Mode: External Duration (sec)2399: 60-90 Quality: Mild Pattern: Normal: <= 5 Contractions in 10 Minutes Resting Tone [place]: Relaxed Heart Rate FHR Baseline Rate: 130 Monitor Mode: External US FHR Baseline Changes: No Baseline Change Variability: Moderate 6-25 bpm Accelerations: 15X15 Decelerations: None Category: Category I Pain Assessment Pain Scale: 6 Pain Presence: Intermittent Pain Type: Cramping; Contraction Pain Location: Abdomen Pain Goal: 4 Pain Relief Measures: Comfort Measures Datetime: 06/02/2016 09:38 Vaginal Exam Dilatation (cms): 3.0 Effacement (%): 60 Station: -2 Exam By: JAZIEL/MIMA Datetime: 06/02/2016 09:00 Labor Evaluation Frequency: 5/HR Monitor Mode: External Duration (sec)2399: 60-130 Quality: Mild Pattern: Normal: <= 5 Contractions in 10 Minutes Resting Tone [place]: Relaxed Heart Rate FHR Baseline Rate: 135 Monitor Mode: External US FHR Baseline Changes: No Baseline Change Variability: Moderate 6-25 bpm Accelerations: 15X15 Decelerations: None Category: Category I Pain Assessment Comments: PT IS SLEEPING Datetime: 06/02/2016 08:00 Labor Evaluation Frequency: OCCAS Monitor Mode: External Duration (sec)2399: 60-120 Quality: Mild Pattern: Normal: <= 5 Contractions in 10 Minutes Resting Tone [place]: Relaxed Heart Rate FHR Baseline Rate: 135 Monitor Mode: External US Variability: Moderate 6-25 bpm Accelerations: 15X15 Decelerations: None Category: Category I Datetime: 06/02/2016 07:17 Assessment Type: Ongoing Assessment Maternal Assessment Level of Consciousness: Fully Conscious DTR's/Clonus: DTRs 2+; No Clonus Headache: Denies Blurred Vision: No Respiratory Effort: Unlabored; Regular Rhythm; Equal Expansion Breath Sounds, Left: Clear and Equal Breath Sounds, Right: Clear and Equal Nausea/Vomiting: Denies RUQ Epigastric Pain: Denies Lower Extremities Edema: None Degree: None Upper Extremities Edema: None Degree: None Facial Edema: None Fall Risk Assessment History of Falling: (0) No Secondary Diagnosis: (0) No Ambulatory Aid: (0) Bedrest/Nurse Assist IV Therapy: (20) Yes Gait: (0) Normal/Bedrest/Immobile Mental Status: (0) Oriented to Own Ability Fall Score: 20 Fall Risk Score Definition: No Risk: No action required Datetime: 06/02/2016 07:00 Stage of : Labor Maternal Assessment Level of Consciousness: Fully Conscious DTR's/Clonus: DTRs 2+; No Clonus Headache: Denies Breath Sounds, Left: Clear and Equal Breath Sounds, Right: Clear and Equal Nausea/Vomiting: Denies RUQ Epigastric Pain: Denies Labor Evaluation Frequency: IRREGULAR X6 Monitor Mode: External Duration (sec)2399: 60-120 Quality: Moderate Pattern: Normal: <= 5 Contractions in 10 Minutes Resting Tone [place]: Relaxed Heart Rate FHR Baseline Rate: 130 Monitor Mode: External US Variability: Moderate 6-25 bpm Accelerations: 15X15 Decelerations: None Category: Category I Datetime: 06/02/2016 06:00 Stage of : Labor Maternal Assessment Level of Consciousness: Fully Conscious DTR's/Clonus: DTRs 2+; No Clonus Headache: Denies Breath Sounds, Left: Clear and Equal Breath Sounds, Right: Clear and Equal Nausea/Vomiting: Denies RUQ Epigastric Pain: Denies Labor Evaluation Frequency: IRREGULAR X5 Monitor Mode: External Duration (sec)2399: 60-120 Quality: Moderate Pattern: Normal: <= 5 Contractions in 10 Minutes Resting Tone [place]: Relaxed Heart Rate FHR Baseline Rate: 125 Monitor Mode: External US Variability: Moderate 6-25 bpm Decelerations: None Category: Category I Datetime: 06/02/2016 05:00 Stage of : Labor Maternal Assessment Level of Consciousness: Fully Conscious DTR's/Clonus: DTRs 2+; No Clonus Headache: Denies Breath Sounds, Left: Clear and Equal Breath Sounds, Right: Clear and Equal Nausea/Vomiting: Denies RUQ Epigastric Pain: Denies Labor Evaluation Frequency: IRREGULAR X8 Monitor Mode: External Duration (sec)2399: 60-120 Quality: Moderate Pattern: Normal: <= 5 Contractions in 10 Minutes Resting Tone [place]: Relaxed Heart Rate FHR Baseline Rate: 130 Monitor Mode: External US Variability: Minimal - Undetectable to <=5 bpm Decelerations: None Category: Category II Datetime: 06/02/2016 04:30 Stage of : Labor Datetime: 06/02/2016 04:00 Stage of : Labor Maternal Assessment Level of Consciousness: Fully Conscious DTR's/Clonus: DTRs 2+; No Clonus Headache: Denies Breath Sounds, Left: Clear and Equal Breath Sounds, Right: Clear and Equal Nausea/Vomiting: Denies RUQ Epigastric Pain: Denies Labor Evaluation Frequency: IRREGULAR X5 Monitor Mode: External Duration (sec)2399: 60-120 Quality: Moderate Pattern: Normal: <= 5 Contractions in 10 Minutes Resting Tone [place]: Relaxed Heart Rate FHR Baseline Rate: 135 Monitor Mode: External US Variability: Minimal - Undetectable to <=5 bpm Decelerations: Variable Category: Category II Comments: REPOSITION TO LEFT SIDE LATERAL, 10L O2 NON-REBREATHER MASK APPLIED, 400ML LR IV BOLUS G IVEN. Datetime: 06/02/2016 03:00 Stage of : Labor Maternal Assessment Level of Consciousness: Fully Conscious DTR's/Clonus: DTRs 2+; No Clonus Headache: Denies Breath Sounds, Left: Clear and Equal Breath Sounds, Right: Clear and Equal Nausea/Vomiting: Denies RUQ Epigastric Pain: Denies Labor Evaluation Frequency: IRREGULAR X8 Monitor Mode: External Duration (sec)2399: 60-120 Quality: Moderate Pattern: Normal: <= 5 Contractions in 10 Minutes Resting Tone [place]: Relaxed Heart Rate FHR Baseline Rate: 135 Monitor Mode: External US Variability: Moderate 6-25 bpm Accelerations: 15X15 Decelerations: Variable Category: Category I Datetime: 06/02/2016 02:09 Stage of : Labor Pain Assessment Pain Scale: 8 Pain Presence: Intermittent Pain Type: Contraction Pain Location: Abdomen Pain Goal: 3 Pain Relief Measures: Pain Medication Given (Annotations: STADOL 2MG IVP GIVEN ) Datetime: 06/02/2016 02:00 Stage of : Labor Maternal Assessment Level of Consciousness: Fully Conscious DTR's/Clonus: DTRs 2+; No Clonus Headache: Denies Breath Sounds, Left: Clear and Equal Breath Sounds, Right: Clear and Equal Nausea/Vomiting: Denies RUQ Epigastric Pain: Denies Labor Evaluation Frequency: IRREGULAR Monitor Mode: External Duration (sec)2399: 70-140 Quality: Moderate Resting Tone [place]: Relaxed Heart Rate FHR Baseline Rate: 135 Monitor Mode: External US Variability: Moderate 6-25 bpm Accelerations: 15X15 Decelerations: Variable Category: Category I Datetime: 06/02/2016 01:00 Stage of : Labor Maternal Assessment Level of Consciousness: Fully Conscious DTR's/Clonus: DTRs 2+; No Clonus Headache: Denies Breath Sounds, Left: Clear and Equal Breath Sounds, Right: Clear and Equal Nausea/Vomiting: Denies RUQ Epigastric Pain: Denies Labor Evaluation Frequency: IRREGULAR Monitor Mode: External Duration (sec)2399: 70-140 Quality: Mild Resting Tone [place]: Relaxed Interventions: Side to Side Heart Rate FHR Baseline Rate: 135 Monitor Mode: External US Variability: Moderate 6-25 bpm Accelerations: 15X15 Decelerations: Variable Category: Category II Datetime: 06/02/2016 00:35 Stage of : Labor Vaginal Exam Dilatation (cms): 2.5 Effacement (%): 60 Exam By: DR DELSHAD Datetime: 06/02/2016 00:30 Stage of : Labor Datetime: 06/02/2016 00:00 Stage of : Labor Maternal Assessment Level of Consciousness: Fully Conscious DTR's/Clonus: DTRs 2+; No Clonus Headache: Denies Breath Sounds, Left: Clear and Equal Breath Sounds, Right: Clear and Equal Nausea/Vomiting: Denies RUQ Epigastric Pain: Denies Labor Evaluation Frequency: IRREGULAR Monitor Mode: External Duration (sec)2399: 70-120 Quality: Mild Resting Tone [place]: Relaxed Heart Rate FHR Baseline Rate: 135 Monitor Mode: External US Variability: Moderate 6-25 bpm Accelerations: 15X15 Decelerations: None Category: Category I Datetime: 06/01/2016 23:00 Stage of : Labor Maternal Assessment Level of Consciousness: Fully Conscious DTR's/Clonus: DTRs 2+; No Clonus Headache: Denies Breath Sounds, Left: Clear and Equal Breath Sounds, Right: Clear and Equal Nausea/Vomiting: Denies RUQ Epigastric Pain: Denies Labor Evaluation Frequency: IRREGULAR Monitor Mode: External Duration (sec)2399: 70-120 Quality: Mild Resting Tone [place]: Relaxed Heart Rate FHR Baseline Rate: 130 Monitor Mode: External US Variability: Moderate 6-25 bpm Accelerations: 15X15 Datetime: 06/01/2016 22:00 Stage of : Labor Maternal Assessment Level of Consciousness: Fully Conscious DTR's/Clonus: DTRs 2+; No Clonus Headache: Denies Breath Sounds, Left: Clear and Equal Breath Sounds, Right: Clear and Equal Nausea/Vomiting: Denies RUQ Epigastric Pain: Denies Labor Evaluation Frequency: IRREGULAR Monitor Mode: External Duration (sec)2399: 70-120 Quality: Mild Resting Tone [place]: Relaxed Heart Rate FHR Baseline Rate: 130 Monitor Mode: External US Variability: Moderate 6-25 bpm Accelerations: 15X15 Datetime: 06/01/2016 21:00 Stage of : Labor Maternal Assessment Level of Consciousness: Fully Conscious DTR's/Clonus: DTRs 2+; No Clonus Headache: Denies Breath Sounds, Left: Clear and Equal Breath Sounds, Right: Clear and Equal Nausea/Vomiting: Denies RUQ Epigastric Pain: Denies Labor Evaluation Frequency: IRREGULAR Monitor Mode: External Duration (sec)2399: 64=676 Quality: Mild Resting Tone [place]: Relaxed Heart Rate FHR Baseline Rate: 125 Monitor Mode: External US Accelerations: 15X15 Datetime: 06/01/2016 20:02 Stage of : Labor Assessment Type: Ongoing Assessment Maternal Assessment Level of Consciousness: Fully Conscious DTR's/Clonus: DTRs 2+; No Clonus Headache: Denies Blurred Vision: No Respiratory Effort: Unlabored; Regular Rhythm; Equal Expansion Breath Sounds, Left: Clear and Equal Breath Sounds, Right: Clear and Equal Nausea/Vomiting: Denies RUQ Epigastric Pain: Denies Lower Extremities Edema: None Degree: None Upper Extremities Edema: None Degree: None Facial Edema: None Fall Risk Assessment History of Falling: (0) No Secondary Diagnosis: (0) No Ambulatory Aid: (0) Bedrest/Nurse Assist IV Therapy: (0) No Gait: (0) Normal/Bedrest/Immobile Mental Status: (0) Oriented to Own Ability Fall Score: 0 Fall Risk Score Definition: No Risk: No action required Monitor Mode: External Quality: Mild Resting Tone [place]: Relaxed Datetime: 06/01/2016 19:31 Assessment Type: Ongoing Assessment Maternal Assessment Level of Consciousness: Fully Conscious Maternal Assessment Level of Consciousness: Fully Conscious DTR's/Clonus: DTRs 2+; No Clonus Headache: Denies Headache: Denies Blurred Vision: No Blurred Vision: No Respiratory Effort: Unlabored; Regular Rhythm; Equal Expansion Breath Sounds, Left: Clear and Equal Breath Sounds, Right: Clear and Equal Nausea/Vomiting: Denies Nausea/Vomiting: Denies RUQ Epigastric Pain: Denies RUQ Epigastric Pain: Denies Lower Extremities Edema: None Upper Extremities Edema: None Facial Edema: None Facial Edema: None Fall Risk Assessment History of Falling: (0) No Secondary Diagnosis: (0) No Ambulatory Aid: (0) Bedrest/Nurse Assist IV Therapy: (0) No Gait: (0) Normal/Bedrest/Immobile Mental Status: (0) Oriented to Own Ability Fall Score: 0 Fall Risk Score Definition: No Risk: No action required Datetime: 06/01/2016 19:28 Stage of : Labor Maternal Assessment Level of Consciousness: Lethargy Breath Sounds, Left: Clear and Equal Breath Sounds, Right: Clear and Equal Nausea/Vomiting: Denies Temperature Route: Oral (Annotations: WARM BLANKET IS OFFERED AND COVERED PT. ) Labor Evaluation Frequency: IRREGULAR Monitor Mode: External Duration (sec)2399: 50-90 Quality: Mild Resting Tone [place]: Relaxed Heart Rate FHR Baseline Rate: 120 Monitor Mode: External US Variability: Moderate 6-25 bpm Category: Category II Pain Assessment Pain Scale: 3 Pain Presence: Intermittent Pain Type: Pressure Pain Location: Abdomen Pain Goal: 3 Pain Relief Measures: Comfort Measures Datetime: 06/01/2016 19:00 Labor Evaluation Frequency: 3-5 Monitor Mode: External Duration (sec)2399: 20-40 Quality: Mild Pattern: Normal: <= 5 Contractions in 10 Minutes Resting Tone [place]: Relaxed Heart Rate FHR Baseline Rate: 120 Monitor Mode: External US Variability: Moderate 6-25 bpm Accelerations: 10X10 Decelerations: None Category: Category I Pain Presence: Intermittent Pain Type: Contraction Pain Location: Abdomen Pain Relief Measures: Comfort Measures Datetime: 06/01/2016 18:30 Labor Evaluation Frequency: 5-7 Monitor Mode: External Duration (sec)2399: 20-40 Quality: Mild Pattern: Normal: <= 5 Contractions in 10 Minutes Resting Tone [place]: Relaxed Heart Rate FHR Baseline Rate: 125 Monitor Mode: External US Variability: Minimal - Undetectable to <=5 bpm Accelerations: None Decelerations: None Category: Category II Comments: STADOL ON BOARD Pain Assessment Pain Scale: 3 Pain Presence: Intermittent Pain Type: Cramping Pain Location: Abdomen Pain Goal: 3 Pain Relief Measures: Comfort Measures Datetime: 06/01/2016 18:00 Maternal Assessment Level of Consciousness: Fully Conscious Headache: Denies Blurred Vision: No Nausea/Vomiting: Denies RUQ Epigastric Pain: Denies Facial Edema: None Labor Evaluation Frequency: 3-5 Monitor Mode: External Duration (sec)2399: 5-20 Quality: Mild Resting Tone [place]: Relaxed Heart Rate FHR Baseline Rate: 125 Monitor Mode: External US Variability: Moderate 6-25 bpm Accelerations: 10X10 Category: Category I Comments: stadol on board Pain Assessment Pain Scale: 3 Pain Presence: Intermittent Pain Type: Cramping Pain Location: Abdomen Pain Goal: 3 Pain Relief Measures: Comfort Measures Pain Assessment Comments: pt states "pain med helped" Datetime: 06/01/2016 17:30 Maternal Assessment Level of Consciousness: Fully Conscious Headache: Denies Blurred Vision: No Nausea/Vomiting: Denies RUQ Epigastric Pain: Denies Facial Edema: None Labor Evaluation Frequency: 3-5 Monitor Mode: External Duration (sec)2399: 20-40 Quality: Mild Pattern: Normal: <= 5 Contractions in 10 Minutes Resting Tone [place]: Relaxed Heart Rate FHR Baseline Rate: 140 Monitor Mode: External US Variability: Moderate 6-25 bpm Accelerations: 15X15 Category: Category I Pain Assessment Pain Scale: 4 Pain Presence: Intermittent Pain Type: Cramping; Contraction Pain Location: Abdomen; Back; Perineum Pain Goal: 4 Pain Relief Measures: Comfort Measures Datetime: 06/01/2016 17:00 Maternal Assessment Level of Consciousness: Fully Conscious Headache: Denies Blurred Vision: No Nausea/Vomiting: Denies RUQ Epigastric Pain: Denies Facial Edema: None Labor Evaluation Frequency: 2-5 Monitor Mode: External Duration (sec)2399: 40-60 Quality: Mild Pattern: Normal: <= 5 Contractions in 10 Minutes Resting Tone [place]: Relaxed Heart Rate FHR Baseline Rate: 135 Monitor Mode: External US Variability: Moderate 6-25 bpm Accelerations: 15X15 Decelerations: None Category: Category I Pain Assessment Pain Scale: 6 Pain Presence: Intermittent Pain Type: Contraction Pain Location: Abdomen; Back; Perineum Pain Goal: 4 Pain Relief Measures: Pain Medication Given Pain Assessment Comments: GETTING PAIN MED, STADOL 2MG Datetime: 06/01/2016 16:30 Assessment Type: Admission Assessment Maternal Assessment Level of Consciousness: Fully Conscious Maternal Assessment Level of Consciousness: Fully Conscious DTR's/Clonus: DTRs 2+; No Clonus Headache: Denies Headache: Denies Blurred Vision: No Blurred Vision: No Respiratory Effort: Unlabored; Regular Rhythm; Equal Expansion Breath Sounds, Left: Clear and Equal Breath Sounds, Right: Clear and Equal Nausea/Vomiting: Denies Nausea/Vomiting: Denies RUQ Epigastric Pain: Denies RUQ Epigastric Pain: Denies Lower Extremities Edema: None Upper Extremities Edema: None Facial Edema: None Facial Edema: None Fall Risk Assessment History of Falling: (0) No Secondary Diagnosis: (0) No Ambulatory Aid: (0) Bedrest/Nurse Assist IV Therapy: (0) No (Annotations: starting an iv now) Gait: (0) Normal/Bedrest/Immobile Mental Status: (0) Oriented to Own Ability Fall Score: 0 Fall Risk Score Definition: No Risk: No action required Labor Evaluation Frequency: 3-5 Monitor Mode: External Quality: Mild Pattern: Normal: <= 5 Contractions in 10 Minutes Resting Tone [place]: Relaxed Heart Rate FHR Baseline Rate: 135 Monitor Mode: External US Variability: Moderate 6-25 bpm Accelerations: 15X15 Decelerations: None Category: Category I Pain Assessment Pain Scale: 8 Pain Presence: Intermittent Pain Type: Cramping; Contraction Pain Location: Abdomen; Back Pain Goal: 3 Pain Relief Measures: Comfort Measures Membrane Status: Intact Datetime: 06/01/2016 11:29 EGA: 36.0 Datetime: 06/01/2016 11:28 Fall Score: 0 Fall Risk Score Definition: No Risk: No action required Datetime: 05/31/2016 11:53 Fall Score: 0 Fall Risk Score Definition: No Risk: No action required Datetime: 05/31/2016 11:47 EGA: 35.6 Datetime: 04/27/2016 20:01 Fall Score: 20 Fall Risk Score Definition: No Risk: No action required Datetime: 04/26/2016 07:30 Fall Score: 0 Fall Risk Score Definition: No Risk: No action required Datetime: 04/25/2016 19:19 Fall Score: 0 Fall Risk Score Definition: No Risk: No action required Datetime: 04/25/2016 07:23 Fall Score: 0 Fall Risk Score Definition: No Risk: No action required Datetime: 04/24/2016 22:20 Fall Score: 0 Fall Risk Score Definition: No Risk: No action required Datetime: 04/24/2016 20:14 EGA: 30.4 Datetime: 04/04/2016 10:50 Fall Score: 0 Fall Risk Score Definition: No Risk: No action required Datetime: 04/04/2016 10:47 EGA: 27.5 Datetime: 03/18/2016 11:38 Fall Score: 0 Fall Risk Score Definition: No Risk: No action required Datetime: 03/18/2016 11:36 EGA: 25.2 Datetime: 03/13/2016 08:40 Fall Score: 20 Fall Risk Score Definition: No Risk: No action required Datetime: 03/12/2016 20:45 Fall Score: 20 Fall Risk Score Definition: No Risk: No action required Datetime: 03/12/2016 08:22 Fall Score: 0 Fall Risk Score Definition: No Risk: No action required Datetime: 03/11/2016 07:32 Fall Score: 0 Fall Risk Score Definition: No Risk: No action required Datetime: 03/10/2016 19:25 Fall Score: 0 Fall Risk Score Definition: No Risk: No action required Datetime: 03/10/2016 17:25 Fall Score: 0 Fall Risk Score Definition: No Risk: No action required Datetime: 03/10/2016 13:24 Fall Score: 0 Fall Risk Score Definition: No Risk: No action required Datetime: 03/10/2016 13:22 EGA: 24.1
[2016-06-18 23:34] LABS: ADD SCAN DIFF NO
[2016-06-18] MEDS: LACTATED RINGER'S 1,000 ML IV SCH (23:35)
[2016-06-18 23:37] LABS: BASOPHILS % 0.3 % (0.0-2.0); EOSINOPHILS # 0.1 10^3/ul (0.0-0.5); EOSINOPHILS % 0.9 % (0.0-7.0); HEMATOCRIT 30.7 % (37.0-47.0); LYMPHOCYTES # 1.6 10^3/ul (0.8-2.9); LYMPHOCYTES % 23.8 % (15.0-51.0); MEAN CORPUSCULAR HEMOGLOBIN 28.2 pg (29.0-33.0); MEAN CORPUSCULAR HGB CONC 32.6 g/dl (32.0-37.0); MEAN CORPUSCULAR VOLUME 86.7 fl (82.0-101.0); MEAN PLATELET VOLUME 11.1 fl (7.4-10.4); MONOCYTE # 0.7 10^3/ul (0.3-0.9); MONOCYTES % 10.6 % (0.0-11.0); NEUTROPHIL # 4.4 10^3/ul (1.6-7.5); PLATELET COUNT 266 10^3/UL (140-415); RED BLOOD COUNT 3.54 10^6/ul (4.20-5.40); WHITE BLOOD COUNT 6.8 10^3/ul (4.8-10.8)
[2016-06-18 23:49] LABS: INR 0.99; PROTIME 13.1 Sec (12.2-14.2)
[2016-06-18 23:50] LABS: PARTIAL THROMBOPLASTIN TIME 27.5 Sec (25.0-35.0)
[2016-06-19] MEDS ORDERED: AMPICILLIN 2 GM/NS (PMX) 100 ML IV ONE
[2016-06-19] MEDS ORDERED: morphine 2 MG INJ IV PRN ×2 (00:30)
[2016-06-19] MEDS ORDERED: DIPHENHYDRAMINE 50 MG INJ IV PRN (00:30)
[2016-06-19] MEDS ORDERED: KETOROLAC 30 MG INJ IV PRN (00:30)
[2016-06-19] MEDS ORDERED: PROCHLORPERAZINE 10 MG INJ IV PRN (00:30)
[2016-06-19] MEDS ORDERED: ONDANSETRON 4 MG INJ IV ONE (00:30)
[2016-06-19] MEDS ORDERED: CITRIC ACID/NA CITRATE 30 ML CUP PO ONE (00:30)
[2016-06-19] MEDS ORDERED: NALOXONE (0.4 MG/ML) INJ IV PRN (00:30)
[2016-06-19] MEDS ORDERED: ONDANSETRON 4 MG INJ IV PRN (00:30)
[2016-06-19] MEDS ORDERED: FENTAnyl 2MCG/ML-ROPIV 0.2% 100 ML ONE (00:35)
[2016-06-19] MEDS: LACTATED RINGER'S 1,000 ML IV SCH ×3 (01:35→20:08)
[2016-06-19] MEDS: AMPICILLIN 1 GM/NS (PMX) 50 ML IV SCH ×5 (04:04→20:02)
[2016-06-19] MEDS: FENTAnyl 2MCG/ML-ROPIV 0.2% 100 ML BAG EPI SCH ×2 (08:37→16:51)
[2016-06-19] MEDS ORDERED: OXYTOCIN 30 UNITS/LR 500 ML IV SCH (18:30)
--- NOTE | 2016-06-19 21:46 | HP ---
Date/Time of Note Date/Time of Note DATE: 06/19/16 TIME: 21:42 OB - History Hx of Present Chief Complaint: contractions Estimated Due Date: Jun 29, 2016 : 6 Para: 4 Spontaneous : 0 Therapeutic : 1 Care: Good Care Ultrasounds: Normal mid trimester US Obstetrical Complications: None Medical Complications: None Past Family/Social History * Past Medical, Surgical, Family and Obstetric Histories reviewed from chart. GBS Status: Positive OB Admission Exam Vital Signs Vital Signs Vital Signs Date Time Temp Pulse Resp B/P Pulse Ox O2 Delivery O2 Flow Rate FiO2 06/18/16 22:59 98.0 88 20 98/55 Room Air Physical Exam HEENT: WNL Heart: Rhythm Normal Lungs: Clear Abdomen: WNL Extremities: Normal Cervical Dilatation: 4cm Effacement: 50% Station: -1 Membranes: Intact Heart Rate: 140's Accelerations: Accelerations Present Decelerations: No Decelerations Varibility: Moderate Last 72 hours Lab Results CBC & BMP 06/18/16 23:25 OB Assessment/Plan Reason for admission: active labor Plan: Expectant Management ECHO RILEY MD Jun 19, 2016 21:46
[2016-06-20] MEDS: AMPICILLIN 1 GM/NS (PMX) 50 ML IV SCH ×2 (00:03→04:03)
[2016-06-20] MEDS: FENTAnyl 2MCG/ML-ROPIV 0.2% 100 ML BAG EPI SCH (01:10)
[2016-06-20] MEDS: LACTATED RINGER'S 1,000 ML IV SCH (05:09)
--- NOTE | 2016-06-20 06:24 | LDN ---
Date/Time of Note Date/Time of Note DATE: 06/20/16 TIME: 06:22 Delivery Summary Weeks of Gestation 38 weeks and 5 days Placenta Delivered: Spontaneously Meconium: none Episiotomy: No Perineal laceration: 0 Anesthesia type: Epidural Estimated blood loss: 200 Sponge & Needle done & correct: Yes All needle counts correct: Yes Any foreign bodies felt in the: No Problems: Infant Delivery Information Sex Infant Sex: male Apgars 1 Minute: 8 5 Minute: 9 Suctioning Nose & mouth suctioned at mat: Yes Delee suction performed: No Umbilical Cord Umbilical cord with: 3 Vessels Cord presentations: nuchal cord Nuchal cord present X: 1 Cord Blood was obtained: Yes Mother & Baby Disposition Disposition Mom & Baby to Maternity; Good: Yes ECHO RILEY MD Jun 20, 2016 06:24
[2016-06-20 09:15] VITALS: BP 109/73; PULSE 70; RESP 18
[2016-06-20] MEDS ORDERED: LACTATED RINGER'S 1,000 ML IV* SCH (09:17)
[2016-06-20] MEDS ORDERED: WITCH HAZEL/GLYCERIN PAD PR PRN (09:30)
[2016-06-20] MEDS ORDERED: BENZOCAINE 20% 56 ML SPRAY TOP PRN (09:30)
[2016-06-20] MEDS ORDERED: CARBOPROST 250 MCG INJ IM PRN (09:30)
[2016-06-20] MEDS ORDERED: ACETAMINOPHEN 325 MG TAB PO PRN (09:30)
[2016-06-20] MEDS ORDERED: MISOPROSTOL 200 MCG TAB PR PRN (09:30)
[2016-06-20] MEDS ORDERED: DIBUCAINE 1% 30 GM OINT PR PRN (09:30)
[2016-06-20] MEDS ORDERED: OXYTOCIN 30 UNITS/LR 500 ML IV PRN (09:30)
[2016-06-20] MEDS ORDERED: METHYLERGONOVINE 0.2 MG INJ IM PRN (09:30)
[2016-06-20 09:45] VITALS: BP 108/66; PULSE 90; RESP 19
[2016-06-20] MEDS: ACETAMINOPHEN/CODEINE #3 TAB PO PRN ×2 (10:35→21:53)
[2016-06-20 11:55] VITALS: BP 109/66; PULSE 64; RESP 17
[2016-06-20] MEDS: IBUPROFEN 600 MG TAB PO SCH ×3 (11:55→23:26)
[2016-06-20 16:40] VITALS: BP 108/76; PULSE 65; RESP 18
[2016-06-20 19:50] VITALS: BP 98/68; PULSE 64; RESP 19
[2016-06-20] MEDS: SENNA/DOCUSATE NA (8.6MG/50MG) TAB PO SCH (21:50)
[2016-06-20 23:55] VITALS: BP 102/69; PULSE 66; RESP 18
[2016-06-21] MEDS: ACETAMINOPHEN/CODEINE #3 TAB PO PRN (01:27)
[2016-06-21 03:55] VITALS: BP 90/58; PULSE 66; RESP 18
[2016-06-21] MEDS: IBUPROFEN 600 MG TAB PO SCH ×4 (05:07→23:49)
[2016-06-21 07:33] LABS: ADD SCAN DIFF NO
[2016-06-21 07:38] LABS: BASOPHILS % 0.4 % (0.0-2.0); EOSINOPHILS # 0.1 10^3/ul (0.0-0.5); EOSINOPHILS % 1.7 % (0.0-7.0); HEMATOCRIT 30.9 % (37.0-47.0); LYMPHOCYTES # 2.1 10^3/ul (0.8-2.9); LYMPHOCYTES % 25.4 % (15.0-51.0); MEAN CORPUSCULAR HEMOGLOBIN 28.9 pg (29.0-33.0); MEAN CORPUSCULAR HGB CONC 32.4 g/dl (32.0-37.0); MEAN CORPUSCULAR VOLUME 89.3 fl (82.0-101.0); MEAN PLATELET VOLUME 11.3 fl (7.4-10.4); MONOCYTE # 0.9 10^3/ul (0.3-0.9); MONOCYTES % 10.6 % (0.0-11.0); NEUTROPHIL # 5.1 10^3/ul (1.6-7.5); NEUTROPHILS % 61.3 % (39.0-77.0); PLATELET COUNT 238 10^3/UL (140-415); RED BLOOD COUNT 3.46 10^6/ul (4.20-5.40); RED CELL DISTRIBUTION WIDTH 13.2 % (11.5-14.5); WHITE BLOOD COUNT 8.3 10^3/ul (4.8-10.8)
[2016-06-21 08:00] VITALS: BP 95/54; PULSE 71; RESP 19
[2016-06-21] MEDS: SENNA/DOCUSATE NA (8.6MG/50MG) TAB PO SCH ×2 (09:31→21:30)
[2016-06-21 16:12] VITALS: BP 103/59; PULSE 78; RESP 18
--- NOTE | 2016-06-21 19:07 | QN ---
Documentation Comment No complaint Afebrile VSS Fundus Firm Lochia scant Stable Continue care. ECHO RILEY MD Jun 21, 2016 19:07
[2016-06-21 20:05] VITALS: BP 99/58; PULSE 70; RESP 18
[2016-06-22 04:10] VITALS: BP 104/58; PULSE 70; RESP 18
[2016-06-22] MEDS: IBUPROFEN 600 MG TAB PO SCH ×2 (05:27→12:02)
[2016-06-22 09:00] VITALS: BP 105/65; PULSE 71
[2016-06-22] MEDS ORDERED: DIPHTH/TET/ACEL PERTUSS (ADULT) 0.5 ML VIAL IM* ONE (09:00)
[2016-06-22] MEDS: SENNA/DOCUSATE NA (8.6MG/50MG) TAB PO SCH (09:07)
--- NOTE | 2016-06-22 11:14 | DS ---
Date/Time of Note Date/Time of Note DATE: 06/22/16 TIME: 11:13 Obstetrical Discharge Record Final Diagnosis Final Diagnosis: Term delivered Vaginal Delivery Obstetrical Delivery: Spontaneous Condition on Discharge Physical Assessment Voiding: Yes Bowel Movement: Yes Breast: Soft, non-tender Fundus: Firm Calf Tenderness: No Patient Condition: Stable ECHO RILEY MD Jun 22, 2016 11:14
== END 2016-06-22 17:28 | disposition home or self-care (01) | DRG 775 ==
LOC: OBT 22:47 → L-D 22:49 → OBT 23:15 → PP1 06-20 09:16
PROVIDERS: ADMIT Obstetrics & Gynecology; ATTEND Obstetrics & Gynecology
PROC: 10E0XZZ Delivery of Products of Conception, External Approach (ICD-10-PCS; principal; 2016-06-20)
PROC: 3E00X4Z Introduction of Serum, Toxoid and Vaccine into Skin and Mucous Membranes, External Approach (ICD-10-PCS; 2016-06-22)
DX: O99.284 Endocrine, nutritional and metabolic diseases complicating childbirth (principal); O69.81X0 Labor and delivery complicated by cord around neck, without compression, not applicable or unspecified; Z23 Encounter for immunization; Z3A.38 38 weeks gestation of pregnancy; Z37.0 Single live birth
CPT/HCPCS: 36415; 62319; 85025; 85610; 85730; 86592; 86900; 86901; 87340; 90715; 96360; G0463; J0290; J2405; J2590; J3010; J7120

== ENCOUNTER 2018-08-25 19:37 | Emergency (ER) | payer OTHER ==
[~2018-08-25] VITALS: Ht 152.4 cm; Wt 62.1 kg
[2018-08-25 19:53] VITALS: Ht 152.4 cm; Wt 62.1 kg
--- NOTE | 2018-08-26 01:12 | ERD ---
ER Documentation Chief Complaint Chief Complaint AP, BACK PAIN X'S 2 DAYS; 19 WEEKS PG HPI 28-year-old female G6, P5 currently 19 weeks per LMP who presents with complaint of pelvic and back pain over the past 2 days. Patient states she has a history of labor with last requiring delivery at 35 weeks. She is concerned given that she describes her pelvic pain and discomfort as contraction-like. States yesterday she had approximately 5 contraction-like episodes in 1 hour period. Had 6 episodes in 1 period today with last occurring around 9 PM. Has had bilateral flank pain. Reports clear vaginal discharge otherwise denies vaginal bleeding, urinary burning or itching, fevers, chills, chest pain, shortness of breath, upper abdominal pain, or any other concerning symptoms. ROS All systems reviewed and are negative except as per history of present illness. Medications Home Meds Reported Medications Multivit/Min/Fol Ac/Iron/Pren* ( S*) 1 Tab Tab, 1 TAB PO DAILY, TAB 05/31/16 Allergies Allergies: Coded Allergies: No Known Drug Allergies (Verified Allergy, Unknown, 04/24/16) PMhx/Soc Medical and Surgical Hx: pt denies Medical Hx, pt denies Surgical Hx History of Surgery: No Anesthesia Reaction: No Hx Neurological Disorder: No Hx Respiratory Disorders: No Hx Cardiac Disorders: No Hx Psychiatric Problems: No Hx Miscellaneous Medical Probl: No (PT. DENIES MEDICAL AND SURGICAL HX.) Hx Alcohol Use: No Hx Substance Use: No Hx Tobacco Use: No Smoking Status: Never smoker FmHx Family History: No diabetes, No coronary disease, No other Physical Exam Vitals Vital Signs Date Temp Pulse Resp B/P (MAP) Pulse Ox O2 O2 Flow FiO2 Time Delivery Rate 08/25/18 98.4 81 18 113/63 98 19:53 (80) Physical Exam I have reviewed the triage vital signs. Const: Well nourished, well developed, appears stated age Eyes: PERRL, no conjunctival injection HENT: NCAT, Neck supple without meningismus CV: RRR, Warm, well-perfused extremities RESP: CTAB, Unlabored respiratory effort GI: soft, non-tender to abdomen, tender to palpation to right and left iliac/pelvis, no rebound or guarding, non-distended, no masses MSK: No gross deformities appreciated Skin: Warm, dry. No rashes Neuro: grossly non focal Psych: Appropriate mood and affect. Results 24 hrs Laboratory Tests Test 08/26/18 01:22 Urine Color YELLOW Urine Clarity SLIGHTLY CLOUDY Urine pH 6.0 Urine Specific [place] 1.015 Urine Ketones NEGATIVE mg/dL Urine Nitrite NEGATIVE mg/dL Urine Bilirubin NEGATIVE mg/dL Urine Urobilinogen 1+ mg/dL Urine Leukocyte Esterase NEGATIVE Suzie/ul Urine Microscopic RBC 1 /HPF Urine Microscopic WBC 1 /HPF Urine Squamous Epithelial Cells FEW /HPF Urine Mucus MODERATE /HPF Urine Hemoglobin NEGATIVE mg/dL Urine Glucose NEGATIVE mg/dL Urine Total Protein NEGATIVE mg/dl Procedures/MDM 28yo woman at 19 weeks gestational age by _LMP/ultrasound presenting with pelvic pain. Considered ectopic , spectrum of miscarriage/ (threatened, inevitable, incomplete, complete, septic) as well as causes of female-specific abdominal pain unrelated to (e.g., pelvic inflammatory disease with or without tubo-ovarian abscess, [id number], etc.). Also considered causes of abdominal pain that are not gender-specific (e.g., appendicitis, volvulus, small bowel obstruction, mesenteric adenitis, acute cholecystitis/choledocholithiasis and other biliary pathology, etc.). Patient well-appearing with normal vital signs. Gave patient strict return precautions for worsening pain, vaginal bleeding, fever (temperature above 100.4F), lightheadedness/syncope or other concerns. Transvaginal/transabdominal ultrasound demonstrate single live intrauterine gestation of 19 weeks and 4 days, heart rate 137 bpm presentation cephalic, normal findings Patient will follow up in 48 hours with their education counselor. DISPOSITION PLAN: We discussed follow up with the patient's primary care doctor within 24 to 48 hours. Patient counseled regarding my diagnostic impression and care plan. Prior to discharge all questions answered. Pt agrees with treatment plan and understands strict return precautions. Precautionary instructions provided including instructions to return to the ER if not improving or for any worsening or changing symptoms or concerns. Disclaimer: Inadvertent spelling and grammatical errors are likely due to EHR/dictation software use and do not reflect on the overall quality of patient care. Also, please note that the electronic time recorded on this note does not necessarily reflect the actual time of the patient encounter. Departure Diagnosis: Primary Impression: Pelvic pain affecting in second trimester, antepartum Condition: Stable Patient Instructions: Pelvic Pain In : Unclear (2-3 Trimester) Referrals: [facility] YOU HAVE RECEIVED A MEDICAL SCREENING EXAM AND THE RESULTS INDICATE THAT YOU DO NOT HAVE A CONDITION THAT REQUIRES URGENT TREATMENT IN THE EMERGENCY DEPARTMENT. FURTHER EVALUATION AND TREATMENT OF YOUR CONDITION CAN WAIT UNTIL YOU ARE SEEN IN YOUR DOCTORS OFFICE WITHIN THE NEXT 1-2 DAYS. IT IS YOUR RESPONSIBILITY TO MAKE AN APPOINTMENT FOR FOLOW-UP CARE. IF YOU HAVE A PRIMARY DOCTOR --you should call your primary doctor and schedule an appointment IF YOU DO NOT HAVE A PRIMARY DOCTOR YOU CAN CALL OUR PHYSICIAN REFERRAL HOTLINE AT IF YOU CAN NOT AFFORD TO SEE A PHYSICIAN YOU CAN CHOSE FROM THE FOLLOWING [facility] [id number] [facility] [facility] [address] [facility] [facility] [address] [facility] [address] [facility]. [facility] [address] [facility]. [facility]. [address] Additional Instructions: Call your primary care doctor TOMORROW for an appointment during the next 2-3 days.See the doctor sooner or return here if your condition worsens before your appointment time. BRANDI ZAVALA PA-C Aug 26, 2018 01:12
[2018-08-26 02:57] VITALS: BP 118/60; PULSE 87; RESP 19
== END 2018-08-26 02:58 | disposition home or self-care (01) ==
LOC: FTE 19:37
DX: O26.892 Other specified pregnancy related conditions, second trimester (principal); R10.2 Pelvic and perineal pain; Z3A.19 19 weeks gestation of pregnancy
CPT/HCPCS: 76805; 81001; 87086; Z7502; 81003